=== PATIENT | male | born 1935 | race Caucasian/White ===

== ENCOUNTER 2016-09-21 07:43 | Outpatient (CLI) | payer MEDICARE, OTHER | END 2016-09-21 07:44 | disposition home or self-care (01) | DX: M79.1 Myalgia (principal); R50.9 Fever, unspecified ==

== ENCOUNTER 2016-11-12 07:38 | Outpatient (CLI) | payer MEDICARE, OTHER | END 2016-11-12 07:39 | disposition home or self-care (01) | DX: E78.2 Mixed hyperlipidemia (principal); R73.09 Other abnormal glucose; C61 Malignant neoplasm of prostate; Z79.899 Other long term (current) drug therapy ==

== ENCOUNTER 2016-11-27 15:14 | Outpatient (CLI) | payer MEDICARE, OTHER | END 2016-11-27 15:15 | disposition home or self-care (01) | DX: I65.23 Occlusion and stenosis of bilateral carotid arteries (principal) ==

== ENCOUNTER 2016-12-09 22:33 | Outpatient (CLI) | payer MEDICARE, OTHER | END 2016-12-09 22:34 | disposition critical access hospital (66) | DX: R06.02 Shortness of breath (principal) | CPT/HCPCS: A0425; A0427 ==

== ENCOUNTER 2016-12-09 22:47 | Emergency (ER) | payer MEDICARE, OTHER | END 2016-12-10 01:20 | disposition home or self-care (01) | DX: J40 Bronchitis, not specified as acute or chronic (principal); I10 Essential (primary) hypertension; J44.9 Chronic obstructive pulmonary disease, unspecified; Z85.46 Personal history of malignant neoplasm of prostate; Z85.821 Personal history of Merkel cell carcinoma; Z79.82 Long term (current) use of aspirin; Z87.01 Personal history of pneumonia (recurrent) ==

== ENCOUNTER 2016-12-17 01:50 | Outpatient (CLI) | payer MEDICARE, OTHER | END 2016-12-17 01:51 | disposition critical access hospital (66) | LOC: EMS 01:50 | PROVIDERS: ATTEND Surgery | DX: R06.00 Dyspnea, unspecified (principal); R05 Cough; R07.89 Other chest pain | CPT/HCPCS: A0425; A0427 ==

== ENCOUNTER 2016-12-17 02:06 | Inpatient (IN) | payer MEDICARE, OTHER ==
[2016-12-17] MEDS ORDERED: IPRATROPIUM/ALBUTEROL 3 ML NEB INH ONE (02:19)
[2016-12-17] MEDS ORDERED: IPRATROPIUM/ALBUTEROL 3 ML NEB INH STA (02:22)
[2016-12-17] MEDS ORDERED: ASPIRIN CHEW 81 MG TABLET PO STA (02:24)
[2016-12-17] MEDS ORDERED: ASPIRIN CHEW 81 MG TABLET ONE (02:32)
[2016-12-17] MEDS ORDERED: methylPREDNISolone SUCCINATE 125 MG/2 ML VIAL IVP STA (02:35)
[2016-12-17] MEDS ORDERED: methylPREDNISolone SUCCINATE 125 MG/2 ML VIAL IVP ONE (02:45)
[2016-12-17] MEDS ORDERED: levoFLOXacin 250 MG TABLET PO STA (04:17)
[2016-12-17] MEDS ORDERED: levoFLOXacin 250 MG TABLET PO ONE (04:21)
[2016-12-17] MEDS ORDERED: SODIUM CHLORIDE FLUSH 0.9% 10 ML SYRINGE IVP PRN (04:47)
[2016-12-17] MEDS ORDERED: PROCHLORPERAZINE 10 MG/2 ML VIAL IVP PRN (04:47)
[2016-12-17] MEDS ORDERED: ONDANSETRON 4 MG/2 ML VIAL IVP PRN (04:47)
[2016-12-17] MEDS ORDERED: ZOLPIDEM 5 MG TABLET PO PRN (04:47)
[2016-12-17] MEDS ORDERED: ACETAMINOPHEN 325 MG TABLET PO PRN (04:47)
[2016-12-17] MEDS: SODIUM CHLORIDE 0.9% 1,000 ML IV SCH ×2 (05:56→15:04)
[2016-12-17] MEDS: SODIUM CHLORIDE FLUSH 0.9% 10 ML SYRINGE IVP SCH ×3 (05:56→21:35)
[2016-12-17] MEDS ORDERED: methylPREDNISolone SUCCINATE 40 MG/ML VIAL IVP SCH (06:00)
[2016-12-17] MEDS: PANTOPRAZOLE 40 MG TABLET PO SCH (06:03)
[2016-12-17] MEDS: IPRATROPIUM/ALBUTEROL 3 ML NEB INH SCH ×4 (08:05→19:25)
[2016-12-17] MEDS: POLYETHYLENE GLYCOL 3350 17 GM PACKET PO SCH (08:25)
[2016-12-17] MEDS: ASPIRIN EC 81 MG TABLET PO SCH (08:31)
[2016-12-17] MEDS: SACCHAROMYCES BOULARDII 250 MG CAPSULE PO SCH ×2 (08:33→16:28)
[2016-12-17] MEDS: ENOXAPARIN 40 MG/0.4 ML SYRINGE SUBQ SCH (08:34)
[2016-12-17] MEDS ORDERED: LOSARTAN 50 MG TABLET PO SCH ×2 (09:00→20:51)
[2016-12-17] MEDS ORDERED: hydroCHLOROthiazide 25 MG TABLET PO SCH (09:00)
[2016-12-17] MEDS ORDERED: METOPROLOL SUCCINATE 25 MG TABLET PO SCH (09:00)
[2016-12-17] MEDS ORDERED: ATORVASTATIN 40 MG TABLET PO SCH (21:00)
[2016-12-17] MEDS: METOPROLOL SUCCINATE 25 MG TABLET PO SCH (21:34)
[2016-12-18] MEDS: SODIUM CHLORIDE 0.9% 1,000 ML IV SCH ×2 (00:13→10:43)
[2016-12-18] MEDS: PANTOPRAZOLE 40 MG TABLET PO SCH (06:09)
[2016-12-18] MEDS: SODIUM CHLORIDE FLUSH 0.9% 10 ML SYRINGE IVP SCH (06:34)
[2016-12-18] MEDS: IPRATROPIUM/ALBUTEROL 3 ML NEB INH PRN ×2 (07:30→12:15)
[2016-12-18] MEDS ORDERED: predniSONE 20 MG TABLET PO SCH (08:00)
[2016-12-18] MEDS: SACCHAROMYCES BOULARDII 250 MG CAPSULE PO SCH (08:10)
[2016-12-18] MEDS: METOPROLOL SUCCINATE 25 MG TABLET PO SCH (08:11)
[2016-12-18] MEDS: ENOXAPARIN 40 MG/0.4 ML SYRINGE SUBQ SCH (08:11)
[2016-12-18] MEDS: POLYETHYLENE GLYCOL 3350 17 GM PACKET PO SCH (08:14)
[2016-12-18] MEDS: ASPIRIN EC 81 MG TABLET PO SCH (08:14)
== END 2016-12-18 14:03 | disposition home or self-care (01) | DRG 190 ==
DX: J44.0 Chronic obstructive pulmonary disease with (acute) lower respiratory infection (principal); J18.9 Pneumonia, unspecified organism; J44.1 Chronic obstructive pulmonary disease with (acute) exacerbation; G47.33 Obstructive sleep apnea (adult) (pediatric); G47.30 Sleep apnea, unspecified; Z85.828 Personal history of other malignant neoplasm of skin; I10 Essential (primary) hypertension; R09.02 Hypoxemia; Z85.821 Personal history of Merkel cell carcinoma; Z85.46 Personal history of malignant neoplasm of prostate; Z96.643 Presence of artificial hip joint, bilateral; Z87.891 Personal history of nicotine dependence; Z79.82 Long term (current) use of aspirin

== ENCOUNTER 2017-04-16 09:11 | Outpatient (CLI) | payer MEDICARE, OTHER | END 2017-04-16 09:12 | disposition critical access hospital (66) | LOC: EMS 09:11 | PROVIDERS: ATTEND Surgery | DX: R10.9 Unspecified abdominal pain (principal); R42 Dizziness and giddiness | CPT/HCPCS: A0425; A0429 ==

== ENCOUNTER 2017-04-16 09:25 | Emergency (ER) | payer MEDICARE, OTHER ==
--- NOTE | 2017-04-16 09:43 | ED Physician Documentation ---
PD HPI ABD PAIN - Stated complaint Stated Complaint: ABD PX - Chief complaint Chief Complaint: Abd Pain - History obtained from History obtained from: Patient, Family, EMS - History of Present Illness Timing - onset: Enter time (0800), Today Timing - duration: Hours Timing - details: Abrupt onset, Still present Quality: Sharp, Fullness/distended, Pain Location: All over / everywhere Improved by: Laying still Associated symptoms: Near syncope / syncope, Other (woke up in sweats). No: Fever, Nausea, Vomiting, Hematemesis, Diarrhea, Constipation, Melena, Hematochezia, Dysuria, Hematuria, Chest pain, Dizzy Similar symptoms before: No diagnosis Recently seen: Not recently seen - Additional information Additional information: 81-year-old male awoke this morning with abdominal discomfort and awoke with sweats. He did not feel like he had slept through the night. He got up and went to the bathroom had a bowel movement pain persisted and he eventually called the ambulance. Transported the hospital with improvement in his pain. He still has some continued pain and feels that his abdomen is distended. Review of Systems Constitutional: reports: Chills, Sweats. denies: Fever Eyes: denies: Decreased vision Ears: denies: Ear pain Nose: denies: Rhinorrhea / runny nose, Congestion Throat: denies: Sore throat Cardiac: denies: Chest pain / pressure, Palpitations Respiratory: denies: Dyspnea, Cough GI: reports: Abdominal Pain. denies: Nausea, Vomiting, Constipation, Diarrhea : reports: Frequency. denies: Dysuria, Discharge Skin: denies: Rash Musculoskeletal: denies: Neck pain, Back pain, Extremity pain Neurologic: denies: Generalized weakness, Focal weakness, Numbness PD PAST MEDICAL HISTORY - Past Medical History Cardiovascular: Hypertension Respiratory: COPD, Pneumonia, Sleep apnea, CPAP use Endocrine/Autoimmune: None GI: None : None HEENT: Chronic vision loss, Other Psych: None Musculoskeletal:  Derm: None - Past Surgical History Past Surgical History: Yes General: Colonoscopy Ortho: Hip replacement, Other HEENT: Cataracts, Tonsil/Adenoidectomy Derm: Skin cancer surgery - Present Medications Home Medications: Ambulatory Orders Medication Instructions Recorded Confirmed Hydrochlorothiazide 25 mg PO DAILY 05/12/13 04/16/17 Multivitamin with Iron 1 tab PO DAILYWM 05/12/13 04/16/17 [Multivitamins with Iron] Pravastatin Sodium 20 mg PO DAILY 05/12/13 04/16/17 Psyllium [place]/Calcium Carb 1 each PO DAILY 05/12/13 04/16/17 [Metamucil Plus Calcium Capsule] Tiotropium [place] [Spiriva] 1 puffs INH DAILY 05/12/13 04/16/17 Aspirin [Aspir-Low] 81 mg PO DAILY 11/08/15 04/16/17 Losartan Potassium 50 mg PO DAILY 12/17/16 04/16/17 Metoprolol Tartrate 12.5 mg PO BID 12/17/16 04/16/17 - Allergies Allergies/Adverse Reactions: Allergies Allergy/AdvReac Type Severity Reaction Status Date / Time hydrocodone AdvReac faints Verified 04/16/17 09:31 oxycodone [Oxycodone] AdvReac Unknown Verified 04/16/17 09:31 - Social History Does the pt smoke?: No Smoking Status: Never smoker Does the pt drink ETOH?: No Does the pt have substance abuse?: No - Immunizations Immunizations are current?: Yes - POLST Patient has POLST: No POLST Status: Full Code PD ED PE NORMAL - Vitals Vital signs reviewed: Yes (hypertensive with wide pulse pressure. ) - General General: Alert and oriented X 3, Well developed/nourished, Other (flat affect ) - HEENT HEENT: Atraumatic, PERRL - Neck Neck: Supple, no meningeal sign - Cardiac Cardiac: RRR, No murmur - Respiratory Respiratory: No respiratory distress, Other (wheezes and decreased breath sounds in left base. ) - Abdomen Abdomen: Soft, Other (mild general tenderness no specific tenderness or mass) - Back Back: No CVA TTP, No spinal TTP - Derm Derm: Normal color, No rash - Extremities Extremities: No deformity, No edema - Neuro Neuro: No motor deficit - Psych Psych: Normal mood, Normal affect Results - Vitals Vitals: Vital Signs - 24 hr 04/16/17 04/16/17 04/16/17 09:28 10:31 12:13 Temperature 36.1 C L 36.0 C L 36 C L Heart Rate 62 60 62 Respiratory 18 14 14 Rate Blood Pressure 139/60 H 139/56 H 130/58 L O2 Saturation 99 97 97 04/16/17 04/16/17 12:58 13:59 Temperature 36.5 C 36.9 C Heart Rate 66 68 Respiratory 16 15 Rate Blood Pressure 157/63 H 143/59 H O2 Saturation 100 98 Oxygen O2 Source Room air - Labs Labs: Laboratory Tests 04/16/17 04/16/17 04/16/17 10:10 10:10 10:10 WBC 6.0 RBC 4.30 L Hgb 12.4 L Hct 36.0 L MCV 83.7 MCH 28.9 MCHC 34.5 RDW 13.9 Plt Count 247 MPV 6.9 L Neut # 4.3 Lymph # 1.1 L [place] # 0.5 Eos # 0.0 Baso # 0.0 Absolute Nucleated RBC 0.00 Nucleated RBCs 0.0 Sodium 137 Potassium 3.7 Chloride 103 Carbon Dioxide 26 Anion Gap 8.0 BUN 24 H Creatinine 1.3 H Estimated GFR (MDRD) 53 L Glucose 124 H Calcium 9.0 Total Bilirubin 0.8 AST 25 ALT 20 Alkaline Phosphatase 48 Troponin I < 0.04 Total Protein 6.8 Albumin 3.8 Globulin 3.0 Albumin/Globulin Ratio 1.3 Lipase 28 Urine Color Urine Clarity Urine pH Ur Specific [place] Urine Protein Urine Glucose (UA) Urine Ketones Urine Occult Blood Urine Nitrite Urine Bilirubin Urine Urobilinogen Ur Leukocyte Esterase Ur Microscopic Review Urine Culture Comments 04/16/17 11:10 WBC RBC Hgb Hct MCV MCH MCHC RDW Plt Count MPV Neut # Lymph # [place] # Eos # Baso # Absolute Nucleated RBC Nucleated RBCs Sodium Potassium Chloride Carbon Dioxide Anion Gap BUN Creatinine Estimated GFR (MDRD) Glucose Calcium Total Bilirubin AST ALT Alkaline Phosphatase Troponin I Total Protein Albumin Globulin Albumin/Globulin Ratio Lipase Urine Color YELLOW Urine Clarity CLEAR Urine pH 7.0 Ur Specific [place] 1.015 Urine Protein NEGATIVE Urine Glucose (UA) NEGATIVE Urine Ketones NEGATIVE Urine Occult Blood NEGATIVE Urine Nitrite NEGATIVE Urine Bilirubin NEGATIVE Urine Urobilinogen 0.2 (NORMAL) Ur Leukocyte Esterase NEGATIVE Ur Microscopic Review NOT INDICATED Urine Culture Comments NOT INDICATED - Rads (name of study) 2 view chest Radiology: Prelim report reviewed (Impression: 1. 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 He has had one time previously where he thought he had an obstruction was admitted in the hospital overnight and this resolved. Today he has a marked distention of the colon on his chest x-ray and during his stay in the emergency department he continues to improve and his pain and discomfort. He is able to get up and walk and ambulate in the department without pain. I discussed with the patient further testing to include CT scanning of the abdomen to look for bowel obstruction and he is willing to go back home to await any worsening and return should he have worsening. The expectation at the time of discharge is for his symptoms to resolve. Departure - Departure Disposition: 01 Home, Self Care Clinical Impression: Abdominal pain Qualifiers: Abdominal location: generalized Qualified Code(s): R10.84 - Generalized abdominal pain Instructions: ED Abdominal Pain Unkn Cause Follow-Up: Willard Boland MD [Primary Care Provider] - Comments: Today on your chest x-ray looks like there was significant distention of the colon. This appears to be resolving and our expectation is that your pain resolves and does not return or worsen. Should you have persistence or worsening of symptoms return to the ED for further evaluation.
[2017-04-16 10:17] LABS: BASOPHILS % (AUTO) 0.6 %; EOSINOPHILS % (AUTO) 0.6 %; HGB - HEMOGLOBIN 12.4 g/dL (14.0-18.0); LYMPHOCYTES # (AUTO) 1.1 10^3/uL (1.5-3.5); LYMPHOCYTES % (AUTO) 17.9 %; MEAN CORPUSCULAR HEMOGLOBIN 28.9 pg (27.0-31.0); MEAN CORPUSCULAR HGB CONC 34.5 g/dL (32.0-36.0); MEAN CORPUSCULAR VOLUME 83.7 fL (80.0-94.0); MEAN PLATELET VOLUME 6.9 fL (7.4-11.4); MONOCYTES # (AUTO) 0.5 10^3/uL (0.0-1.0); MONOCYTES % (AUTO) 8.2 %; NEUTROPHILS # (AUTO) 4.3 10^3/uL (1.5-6.6); NEUTROPHILS % (AUTO) 72.7 %; RED CELL DISTRIBUTION WIDTH 13.9 % (12.0-15.0)
--- NOTE | 2017-04-16 10:18 | XRAY Preliminary Report ---
Exam: XR Chest 2 View PA/LAT IMPRESSION: 1. 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
--- NOTE | 2017-04-16 10:20 | XRAY Report ---
EXAM: CHEST RADIOGRAPHY EXAM DATE: 04/16/2017 09:57 AM. CLINICAL HISTORY: SOA abdominal pain . COMPARISON: 12/17/2016. TECHNIQUE: 2 views. FINDINGS: Lungs/Pleura: No pleural effusion. No pneumothorax. Normal volumes. Chronic elevated left hemidiaph ragm with decreased left lung volume. Chronic left basilar atelectasis Mediastinum: Shift of heart and mediastinum towards the right from elevated left hemidiaphragm stable . Heart size normal Other: None. IMPRESSION: 1. 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
[2017-04-16 10:30] LABS: ALBUMIN/GLOBULIN RATIO 1.3 (1.0-2.2); BILIRUBIN,TOTAL 0.8 mg/dL (0.2-1.0); CREATININE 1.3 mg/dL (0.6-1.2); POTASSIUM 3.7 mmol/L (3.5-5.0); TOTAL PROTEIN 6.8 g/dL (6.7-8.2)
[2017-04-16 11:24] LABS: BILIRUBIN,URINE NEGATIVE (NEGATIVE)
[2017-04-16 11:26] LABS: UA CHARGE (STRIP ONLY) YES; UR CULTURE IF IND NOT INDICATED
[2017-04-16] MEDS ORDERED: SODIUM CHLORIDE 0.9% 1,000 ML IV ONE (12:57)
[2017-04-16 13:59] VITALS: BP 143/59
== END 2017-04-16 15:05 | disposition home or self-care (01) ==
LOC: EDUNIT# → ED 09:25
DX: R10.84 Generalized abdominal pain (principal); I10 Essential (primary) hypertension; Z96.649 Presence of unspecified artificial hip joint; Z79.82 Long term (current) use of aspirin
CPT/HCPCS: 36415; 71020; 80053; 81001; 81003; 83690; 84484; 85025; 87086; 99283

== ENCOUNTER 2017-12-12 10:15 | Outpatient (CLI) | payer MEDICARE, OTHER ==
[2017-12-12 10:29] LABS: BASOPHILS # (AUTO) 0.1 10^3/uL (0.0-0.1); BASOPHILS % (AUTO) 0.8 %; EOSINOPHILS # (AUTO) 0.1 10^3/uL (0.0-0.7); EOSINOPHILS % (AUTO) 1.5 %; HGB - HEMOGLOBIN 13.4 g/dL (14.0-18.0); LYMPHOCYTES # (AUTO) 2.2 10^3/uL (1.5-3.5); LYMPHOCYTES % (AUTO) 32.2 %; MEAN CORPUSCULAR HEMOGLOBIN 29.3 pg (27.0-31.0); MEAN CORPUSCULAR HGB CONC 34.1 g/dL (32.0-36.0); MEAN CORPUSCULAR VOLUME 86.1 fL (80.0-94.0); MONOCYTES # (AUTO) 0.6 10^3/uL (0.0-1.0); MONOCYTES % (AUTO) 9.7 %; NEUTROPHILS # (AUTO) 3.7 10^3/uL (1.5-6.6); NEUTROPHILS % (AUTO) 55.8 %; PLT - PLATELET COUNT 236 10^3/uL (130-450); RED BLOOD COUNT 4.58 10^6/uL (4.70-6.10); RED CELL DISTRIBUTION WIDTH 13.7 % (12.0-15.0); WHITE BLOOD COUNT 6.7 x10^3/uL (4.8-10.8)
[2017-12-12 10:52] LABS: ALBUMIN 4.3 g/dL (3.2-5.5); ALBUMIN/GLOBULIN RATIO 1.4 (1.0-2.2); ALKALINE PHOSPHATASE 48 IU/L (42-121); ALT ALANINE AMINOTRANSFERASE 20 IU/L (10-60); AST ASPARTATE AMINOTRANSFERASE 24 IU/L (10-42); BILIRUBIN,TOTAL 0.5 mg/dL (0.2-1.0); BUN - BLOOD UREA NITROGEN 20 mg/dL (6-20); CALCIUM 9.1 mg/dL (8.5-10.3); CARBON DIOXIDE - CO2 27 mmol/L (21-32); CHLORIDE 106 mmol/L (101-111); CHOL/HDL RATIO 2.8 (<5.0); CHOLESTEROL 168 mg/dL; CREATININE 1.1 mg/dL (0.6-1.2); GFR - MDRD 64 (>89); GLUCOSE 96 mg/dL (70-100); HDL CHOLESTEROL 60 mg/dL; LDL CHOLESTEROL,CALCULATED 91 mg/dL; LDL/HDL RATIO 1.5 (<3.6); SODIUM 140 mmol/L (135-145); TOTAL PROTEIN 7.4 g/dL (6.7-8.2); VLDL CHOLESTEROL 17 mg/dL
== END 2017-12-12 10:16 | disposition home or self-care (01) ==
LOC: LAB 10:15
PROVIDERS: ATTEND Internal Medicine
DX: I65.29 Occlusion and stenosis of unspecified carotid artery (principal); I12.9 Hypertensive chronic kidney disease with stage 1 through stage 4 chronic kidney disease, or unspecified chronic kidney disease; N18.9 Chronic kidney disease, unspecified
CPT/HCPCS: 36415; 80053; 80061; 83721; 85025

== ENCOUNTER 2018-02-24 09:54 | Outpatient (CLI) | payer MEDICARE, OTHER | END 2018-02-24 09:55 | disposition home or self-care (01) | LOC: SC 09:54 | PROVIDERS: ATTEND Internal Medicine Pulmonary Disease | DX: G47.33 Obstructive sleep apnea (adult) (pediatric) (principal) | CPT/HCPCS: 99203; G0463; 99212 ==

== ENCOUNTER 2018-06-02 13:57 | Outpatient (CLI) | payer MEDICARE, OTHER | END 2018-06-02 13:58 | disposition home or self-care (01) | LOC: SC 13:57 | PROVIDERS: ATTEND Nurse Practitioner Family | DX: G47.33 Obstructive sleep apnea (adult) (pediatric) (principal) | CPT/HCPCS: 99214; G0463; 99212 ==

== ENCOUNTER 2019-05-08 08:09 | Outpatient (CLI) | payer MEDICARE, OTHER ==
[2019-05-08 08:52] LABS: BASOPHILS % (AUTO) 0.7 %; EOSINOPHILS # (AUTO) 0.2 10^3/uL (0.0-0.7); EOSINOPHILS % (AUTO) 2.7 %; HGB - HEMOGLOBIN 12.3 g/dL (14.0-18.0); LYMPHOCYTES # (AUTO) 1.6 10^3/uL (1.5-3.5); LYMPHOCYTES % (AUTO) 28.1 %; MEAN CORPUSCULAR HEMOGLOBIN 30.1 pg (27.0-31.0); MEAN CORPUSCULAR HGB CONC 34.2 g/dL (32.0-36.0); MEAN PLATELET VOLUME 9.4 fL (7.4-11.4); MONOCYTES # (AUTO) 0.6 10^3/uL (0.0-1.0); NEUTROPHILS # (AUTO) 3.2 10^3/uL (1.5-6.6); NEUTROPHILS % (AUTO) 56.4 %; PLT - PLATELET COUNT 233 10^3/uL (130-450); RED BLOOD COUNT 4.09 10^6/uL (4.70-6.10); RED CELL DISTRIBUTION WIDTH 13.1 % (12.0-15.0); WHITE BLOOD COUNT 5.6 x10^3/uL (4.8-10.8)
[2019-05-08 08:58] LABS: HB2 TOTAL 12.2 g/dL; HEMOGLOBIN A1C 0.43 g/dL; HEMOGLOBIN A1C % 5.4 % (4.6-6.2)
[2019-05-08 09:03] LABS: ALBUMIN 3.7 g/dL (3.2-5.5); ALBUMIN/GLOBULIN RATIO 1.2 (1.0-2.2); ALKALINE PHOSPHATASE 52 IU/L (42-121); ALT ALANINE AMINOTRANSFERASE 16 IU/L (10-60); AST ASPARTATE AMINOTRANSFERASE 21 IU/L (10-42); BILIRUBIN,TOTAL 0.6 mg/dL (0.2-1.0); BUN - BLOOD UREA NITROGEN 34 mg/dL (6-20); CALCIUM 8.9 mg/dL (8.5-10.3); CARBON DIOXIDE - CO2 27 mmol/L (21-32); CHLORIDE 106 mmol/L (101-111); CHOL/HDL RATIO 2.7 (<5.0); CHOLESTEROL 146 mg/dL; CREATININE 1.3 mg/dL (0.6-1.2); GFR - MDRD 53 (>89); GLUCOSE 99 mg/dL (70-100); HDL CHOLESTEROL 55 mg/dL; LDL CHOLESTEROL,CALCULATED 82 mg/dL; LDL/HDL RATIO 1.5 (<3.6); SODIUM 141 mmol/L (135-145); TOTAL PROTEIN 6.9 g/dL (6.7-8.2); VLDL CHOLESTEROL 9 mg/dL
== END 2019-05-08 08:10 | disposition home or self-care (01) ==
LOC: LAB 08:09
PROVIDERS: ATTEND Family Medicine
DX: E78.5 Hyperlipidemia, unspecified (principal); E66.3 Overweight; I65.29 Occlusion and stenosis of unspecified carotid artery; I10 Essential (primary) hypertension; G47.33 Obstructive sleep apnea (adult) (pediatric); J44.9 Chronic obstructive pulmonary disease, unspecified; Z79.899 Other long term (current) drug therapy
CPT/HCPCS: 36415; 80053; 80061; 83036; 83721; 84443; 85025

== ENCOUNTER 2019-06-03 12:50 | Outpatient (CLI) | payer MEDICARE, OTHER ==
[2019-06-03 13:36] VITALS: BP 150/70
--- NOTE | 2019-06-03 13:36 | SLEEP CARE CONSULTATION ---
Information from patient questionnaire entered by Lory Mendiola. I have reviewed and concur with the information entered by Lory Mendiola. This document represents the service I personally performed and the decisions made by me, Heavenly Palmer, RN, MSN, [employer] RE[employer]DER. History of Present Illness Previous diagnosis: Extremely Severe, Obstructive Sleep Apnea-Hypopnea Syndrome AHI: 103.4 Reason for CPAP/BiPAP follow up: annual Equipment type: CPAP Equipment obtained from: [facility] [place] (having difficulty getting supplies despite repeated attempts or out of supplies that are needed such as mask) Mask style: Nasal pillows Mask brand: Resmed Backup mask available: Yes (full face mask ) Last cushion change: 6 weeks CPAP Compliance Data - Data Reviewed with Patient Average duration of nightly device use: 6.95 Compliance rate %: 85 (180 days) Current pressure setting (cmH2O): 10-12 Humidity settin Heated hose settin Average residual AHI: 0.1 Average large leak: zero Subjective Missed days of use due to: reports: travel (using his travel CPAP) Patient concerns: reports: dry mouth, nose, throat (occasional - once a month). denies: aerophagia, mask discomfort, air blowing in eyes, mask leak noise, condensation in mask/hose, nasal congestion, epistaxis Observed to snore while using device: No Current pressure setting perceived as: comfortable On therapy, patient: reports: sleeping better, awakening more refreshed, being more awake and alert during the day, more rested overall. denies: drowsiness while driving Initial [place] Sleepiness Scale score: 6 Current [place] Sleepiness Scale score: 0 Allergies and Home Medications Known drug allergies: Yes (hydrocodone, oxycodone ) Home medication list reviewed: Yes (no changes ) Allergy and home medication list: Hydrochlorothiazide 25mg tab one daily Metoprolol Tartrate 25mg tab twice daily Spiriva [place] 18 mcg inhalation cap One daily Pravachol (Pravastatin) 20mg tab one daily at bedtime Losartan Potassium 50mg tab one daily Aspirin DR 81mg tab one daily Multi-Vitamin with iron Tab one daily Metamucil Fiber 51.7% oral packet PRN Ventolin HFA 108 (90 base) mcg/act One-two puffs every 4-6 hours PRN SOB Review of Systems Review of systems same as previous: Yes Physical Exam Blood Pressure: 150/70 Cuff size: long Heart Rate: 74 O2 Saturation: 94 Height: 5 ft 10.75 in Weight: 219 lb 3.2 oz Body Mass Index: 30.7 BMI Classification: Obesity Class 1 Impression and Plan 1. Obstructive Sleep Apnea-Hypopnea Syndrome, extremely severe, with good treatment compliance and good apnea control. On CPAP therapy, the patient has better sleep quality and is more rested overall. For oral dryness, I showed him how to adjust humidity on sample device and discussed rationale for changing settings of humidity and heated hose. For his supply concerns, I discussed how he could transfer to new DME. He will consider. I will have him discuss his options with my rehabilitation program coordinator and make a DWO prescription if needed. A supply replacement schedule given. I answered his questions regarding his CPAP treatment. Patient's apnea severity and rationale for treatment to reduce apnea, improve sleep quality and reduce cardiovascular and cerebrovascular events was reviewed. I also reviewed the benefit of consistent device use of CPAP for hypertension, COPD. * Continue CPAP pressure at 10-12 cmH2O * Adjust humidity * consider transfer. * Notify me if snoring with mask or feeling that the pressure is too much or too little * Attempt to lose weight * Return for follow up in 1 year , or sooner if concerns arise I spent 100% of this 30 minute visit face to face with the patient with greater than 50% of this was spent time counseling the patient and coordination of care.
== END 2019-06-03 12:51 | disposition home or self-care (01) ==
LOC: SC 12:50
PROVIDERS: ATTEND Nurse Practitioner Family
DX: G47.33 Obstructive sleep apnea (adult) (pediatric) (principal); E66.9 Obesity, unspecified; Z68.30 Body mass index [BMI] 30.0-30.9, adult
CPT/HCPCS: 99214; G0463; 99212

== ENCOUNTER 2020-05-19 12:51 | Outpatient (CLI) | payer MEDICARE, OTHER ==
[2020-05-19 13:52] VITALS: BP 120/60
--- NOTE | 2020-05-19 13:53 | SLEEP CARE CONSULTATION ---
Information from patient questionnaire entered by Lory Mendiola. I have reviewed and concur with the information entered by Lory Mendiola. This document represents the service I personally performed and the decisions made by me, Heavenly Palmer, RN, MSN, HEALTH SPECIALIST. History of Present Illness Service Date and Time: 05/19/2020 1251 Previous diagnosis: Extremely Severe, Obstructive Sleep Apnea-Hypopnea Syndrome AHI: 103.4 (in 2004) Reason for follow up: annual (last seen 2019) Equipment type: CPAP Equipment obtained from: [facility] (no longer dispensing CPAP supplies) Mask style: Nasal pillows Backup mask available: Yes (old mask ) Last cushion change: 1 month Prior sleep studies: Yes Year and Where: 2004 - [facility] Type of Sleep Study: Polysomnography CPAP Compliance Data - Data Reviewed with Patient Average duration of nightly device use: 7.1 Compliance rate %: 94.4 (180 days) Current pressure setting (cmH2O): 10-12 Humidity settin Heated hose settin Average residual AHI: 0.1 Average large leak: 12 sec Subjective Missed days of use due to: reports: travel (with travel CPAP ) Patient concerns: reports: other (falling asleep while watching TV in bed occasionally ). denies: aerophagia, mask discomfort, air blowing in eyes, mask leak noise, condensation in mask/hose, dry mouth, nose, throat, epistaxis Observed to snore while using device: No Current pressure setting perceived as: comfortable On therapy, patient: reports: sleeping better, awakening more refreshed, being more awake and alert during the day, more rested overall. denies: drowsiness while driving Initial [place] Sleepiness Scale score: 6 (in 2018) Current [place] Sleepiness Scale score: 0 Allergies and Home Medications Known drug allergies: Yes Home medication list reviewed: Yes (no changes ) Review of Systems Review of systems same as previous: Yes Physical Exam Blood Pressure: 120/60 Cuff size: long Heart Rate: 63 O2 Saturation: 99 Height: 5 ft 10.75 in Weight: 210 lb 9.6 oz (no change) Body Mass Index: 29.5 BMI Classification: Overweight Impression and Plan 1. Obstructive Sleep Apnea-Hypopnea Syndrome, extremely severe, with good treatment compliance and good apnea control. On CPAP therapy, the patient has better sleep quality and is more rested overall. To prevent falling asleep without CPAP he is to put on his CPAP before getting into bed. His mask style allows visualization of TV while in bed. The importance of using CPAP with all sleep was emphasized with rationale due to his apnea severity. He had questions about different styles of masks and showed him other styles on bill shelf and rationale for using. For patient supply concerns. Patient was notified that another DME can be used. I will have my surgical services coordinator inform of DME options. A DWO prescription will then be made. Patient advised to contact this office if further supply problems. He is overweight but stable for past several years and is active and comfortable at this weight. I discussed risks of obesity, his BMI and advised him not to gain weight. If he does lose weight, I explained how significant weight loss can reduce his apnea and CPAP pressure requirements. Symptoms to report for future CPAP pressure adjustments discussed. Patient's apnea severity and rationale for treatment to reduce apnea, improve sleep quality and reduce cardiovascular and cerebrovascular events was reviewed. I also reviewed the benefit of consistent device use of CPAP for hypertension . * Transfer to new DME. * Continue auto CPAP pressure at 10-12 cmH2O * Use CPAP with all sleep. * Notify me if snoring with mask or feeling that the pressure is too much or too little * Attempt to lose weight * Call this office if any problems using CPAP * Return for follow up in 1 year , or sooner if concerns arise Visit Type: In Office Time Spent with Patient (minutes): 29 Provider Statement: I spent 100% of the Face to Face Visit with the patient with greater than 50% spent counseling the patient and coordination of care.
== END 2020-05-19 12:52 | disposition home or self-care (01) ==
LOC: SC 12:51
PROVIDERS: ATTEND Nurse Practitioner Family
DX: G47.33 Obstructive sleep apnea (adult) (pediatric) (principal); E66.3 Overweight; Z68.29 Body mass index [BMI] 29.0-29.9, adult
CPT/HCPCS: 99214; G0463; 99212

== ENCOUNTER 2021-06-06 15:31 | Outpatient (CLI) | payer MEDICARE, OTHER ==
[2021-06-06 16:24] VITALS: BP 138/83
--- NOTE | 2021-06-06 16:24 | SLEEP CARE CONSULTATION ---
Information from patient questionnaire entered by Lanre Phoenix. I have reviewed and concur with the information entered by Lanre Phoenix. This document represents the service I personally performed and the decisions made by me, Casi Menard ARNP. History of Present Illness Service Date and Time: 06/06/2021 1531 Previous diagnosis: Extremely Severe, Obstructive Sleep Apnea-Hypopnea Syndrome AHI: 103.4 (in 2004) Reason for follow up: annual (Last seen 05/2020) Equipment type: CPAP Equipment obtained from: [employer] (old mask) Mask style: Nasal pillows Backup mask available: Yes (old mask) Last cushion change: 1 month Prior sleep studies: Yes Year and Where: 2004 - [facility] Type of Sleep Study: Polysomnography HPI additional information: LIA ANN was diagnosed to have extremely severe, AHI 103.4, obstructive sleep apnea-hypopnea syndrome and returned today for CPAP therapy annual follow- up. CPAP Compliance Data - Data Reviewed with Patient Average duration of nightly device use: 8 h 1 min Compliance rate %: 97.8 Current pressure setting (cmH2O): 10-12 Humidity settin Heated hose settin Average residual AHI: 0.2 Average large leak: 0 sec Subjective Missed days of use due to: reports: travel (to [place], used travel cpap) Patient concerns: reports: mask leak noise (heard by his , does not wake him up). denies: aerophagia, mask discomfort, air blowing in eyes, condensation in mask/hose, nasal congestion, dry mouth, nose, throat, epistaxis, other Observed to snore while using device: No Current pressure setting perceived as: comfortable On therapy, patient: reports: sleeping better, awakening more refreshed, being more awake and alert during the day, more rested overall. denies: drowsiness while driving Initial [place] Sleepiness Scale score: 6 (in 2018) Current [place] Sleepiness Scale score: 1 Allergies and Home Medications Home medication list reviewed: Yes (no changes) Review of Systems Review of systems same as previous: Yes (no changes, has had vaccines for Covid and pneumonia, going for booster ) Physical Exam Blood Pressure: 138/83 (COPD) Cuff size: wrist Heart Rate: 77 O2 Saturation: 97 Height: 5 ft 10.75 in Weight: 210 lb Weight change since last visit: (no change) Body Mass Index: 29.5 BMI Classification: Overweight Impression and Plan 1. Obstructive Sleep Apnea-Hypopnea Syndrome, extremely severe, with good treatment compliance and excellent apnea control. On CPAP therapy, the patient has better sleep quality and is more rested overall. I informed the patient that [employer] has a recall on several devices like the patients machine. Patient was encouraged to register their device online with [employer] for the recall to see if their device is affected. If their device is affected they should start a claim. Patient denies any black particles seen in machine or hoses, any unusual odors coming from device. Patient has not experienced any physical symptoms such as upper airway irritation, headache, skin or eye irritation, asthma, nausea/vomiting, difficulty breathing or chest pain. If patient is not able to sleep due to waking up choking, gasping for air or other respiratory distress that they may decide to continue using it until it is either replaced or repaired. Patient's weight has not changed since his last visit. Patient was encouraged to lose weight for their overall health and to reduce apneas. Patient voiced understanding and agreement with plan. Patient's apnea severity and rationale for treatment to reduce apnea, improve sleep quality and reduce cardiovascular and cerebrovascular events was reviewed. I a lso reviewed the benefit of consistent device use of CPAP for hypertension. * Continue auto CPAP pressure at 10-12 cmH2O * Patient will call and register his device for recall * Notify me if snoring with mask or feeling that the pressure is too much or too little * Attempt to lose weight * Call this office if any problems using CPAP * Return for follow up in 1 year, or sooner if concerns arise Counseling Topics: Spare mask, Weight control Visit Type: In Office Time Spent with Patient (minutes): 22 Provider Statement: I spent 100% of the Face to Face Visit with the patient with greater than 50% spent counseling the patient and coordination of care.
== END 2021-06-06 15:32 | disposition home or self-care (01) ==
LOC: SC 15:31
PROVIDERS: ATTEND Nurse Practitioner Family
DX: G47.33 Obstructive sleep apnea (adult) (pediatric) (principal)
CPT/HCPCS: 99213; G0463; 99212

== ENCOUNTER 2021-07-15 00:08 | Outpatient (CLI) | payer MEDICARE, OTHER | END 2021-07-15 00:09 | disposition critical access hospital (66) | LOC: EMS 00:08 | DX: R06.02 Shortness of breath (principal); R07.89 Other chest pain | CPT/HCPCS: A0425; A0427 ==

== ENCOUNTER 2021-07-15 00:21 | Observation (INO) | payer MEDICARE, OTHER ==
[2021-07-15] MEDS ORDERED: IPRATROPIUM/ALBUTEROL 3 ML NEB INH STA ×2 (00:27→01:27)
[2021-07-15] MEDS ORDERED: methylPREDNISolone SUCCINATE 125 MG/2 ML VIAL IVP STA (00:27)
--- NOTE | 2021-07-15 00:30 | ED Physician Documentation ---
History of Present Illness - Stated complaint Stated Complaint: SOA - History obtained from History obtained from: Patient, EMS - Additonal information Additional information: 86-year-old man with a history of COPD presents after waking from sleep with shortness of breath at 2300. patient self administered albuterol pump X 2. on ems arrival patient was tachypneic, wheezing, with o2 sat 86% RA. he received a duoneb en route with improvement. denies fever/chills, cough, cp. vaccinated against covid-19. patient is coming from his home where he lives independently. Review of Systems Ten Systems: 10 systems reviewed and negative Constitutional: denies: Fever, Chills Cardiac: denies: Chest pain / pressure Respiratory: reports: Dyspnea. denies: Cough PD PAST MEDICAL HISTORY - Present Medications Home Medications: Ambulatory Orders Medication Instructions Recorded Confirmed Hydrochlorothiazide 25 mg PO DAILY 05/12/13 04/16/17 Multivitamin with Iron 1 tab PO DAILYWM 05/12/13 04/16/17 [Multivitamins with Iron] Pravastatin Sodium 20 mg PO DAILY 05/12/13 04/16/17 Psyllium Husk/Calcium Carb 1 each PO DAILY 05/12/13 04/16/17 [Metamucil Plus Calcium Capsule] Tiotropium [place] [Spiriva] 1 puffs INH DAILY 05/12/13 04/16/17 Aspirin [Aspir-Low] 81 mg PO DAILY 11/08/15 04/16/17 Losartan Potassium 50 mg PO DAILY 12/17/16 04/16/17 Metoprolol Tartrate 12.5 mg PO BID 12/17/16 04/16/17 - Allergies Allergies/Adverse Reactions: Allergies Allergy/AdvReac Type Severity Reaction Status Date / Time hydrocodone AdvReac faints Verified 07/15/21 00:31 oxycodone [Oxycodone] AdvReac Unknown Verified 07/15/21 00:31 PD ED PE NORMAL - Vitals Vital signs reviewed: Yes - General General: Alert and oriented X 3, Other (moderate respiratory distress) - HEENT HEENT: Atraumatic, PERRL, EOMI - Neck Neck: Supple, no meningeal sign - Cardiac Cardiac: RRR - Respiratory Respiratory: Other (BL inspiratory and expiratory wheezing) - Abdomen Abdomen: Non tender, Non distended - Derm Derm: Normal color, Warm and dry - Extremities Extremities: No deformity - Neuro Neuro: Alert and oriented X 3 - Psych Psych: Normal mood, Normal affect Results - Vitals Vitals: Vital Signs - 24 hr 07/15/21 07/15/21 07/15/21 00:31 00:50 01:03 Temperature 36.4 C L Heart Rate 89 83 Respiratory 33 H 24 23 Rate Blood Pressure 170/73 H 138/64 H O2 Saturation 97 94 07/15/21 07/15/21 07/15/21 01:38 01:40 01:53 Temperature Heart Rate 98 103 H 99 Respiratory 21 20 27 H Rate Blood Pressure 134/64 H O2 Saturation 95 96 07/15/21 07/15/21 04:20 06:17 Temperature 36.1 C L Heart Rate 95 98 Respiratory 24 25 H Rate Blood Pressure 147/60 H 163/65 H O2 Saturation 95 96 Oxygen O2 Source Room air Oxygen Flow Rate 4 - Labs Labs: Laboratory Tests 07/15/21 07/15/21 07/15/21 00:48 00:48 00:48 WBC 6.7 RBC 4.05 L Hgb 11.7 L Hct 36.0 L MCV 88.9 MCH 28.9 MCHC 32.5 RDW 12.7 Plt Count 222 MPV 9.1 Neut # (Auto) 3.9 Lymph # (Auto) 1.8 Gooding # (Auto) 0.8 Eos # (Auto) 0.2 Baso # (Auto) 0.1 Absolute Nucleated RBC 0.00 Nucleated RBC % 0.0 VBG pH 7.314 VBG pCO2 60.1 H VBG pO2 25.9 VBG HCO3 29.9 H VBG Total CO2 31.7 H VBG O2 Saturation 47.6 L VBG Base Excess 2.3 H Sodium 137 Potassium 3.9 Chloride 100 L Carbon Dioxide 27 Anion Gap 10.0 BUN 34 H Creatinine 1.6 H Estimated GFR (MDRD) 41 L Glucose 141 H Calcium 9.0 Total Bilirubin 0.4 AST 23 ALT 18 Alkaline Phosphatase 57 B-Natriuretic Peptide Total Protein 7.3 Albumin 4.0 Globulin 3.3 Albumin/Globulin Ratio 1.2 Lipase 34 Nasal Adenovirus (PCR) Nasal B. parapertussis DNA (PCR) Nasal Coronavir 229E PCR Nasal Coronavir HKU1 PCR Nasal Coronavir NL63 PCR Nasal Coronavir OC43 PCR Nasal Enterovir/Rhinovir PCR Nasal Influenza B PCR Nasal Influenza A PCR Nasal Parainfluen 1 PCR Nasal Parainfluen 2 PCR Nasal Parainfluen 3 PCR Nasal Parainfluen 4 PCR Nasal RSV (PCR) Nasal B.pertussis DNA PCR Nasal C.pneumoniae (PCR) Bryce Human Metapneumo PCR Nasal M.pneumoniae (PCR) Nasal SARS-CoV-2 (PCR) 07/15/21 07/15/21 00:48 00:52 WBC RBC Hgb Hct MCV MCH MCHC RDW Plt Count MPV Neut # (Auto) Lymph # (Auto) Gooding # (Auto) Eos # (Auto) Baso # (Auto) Absolute Nucleated RBC Nucleated RBC % VBG pH VBG pCO2 VBG pO2 VBG HCO3 VBG Total CO2 VBG O2 Saturation VBG Base Excess Sodium Potassium Chloride Carbon Dioxide Anion Gap BUN Creatinine Estimated GFR (MDRD) Glucose Calcium Total Bilirubin AST ALT Alkaline Phosphatase B-Natriuretic Peptide 148 H Total Protein Albumin Globulin Albumin/Globulin Ratio Lipase Nasal Adenovirus (PCR) NOT DETECTED Nasal B. parapertussis DNA (PCR) NOT DETECTED Nasal Coronavir 229E PCR NOT DETECTED Nasal Coronavir HKU1 PCR NOT DETECTED Nasal Coronavir NL63 PCR NOT DETECTED Nasal Coronavir OC43 PCR NOT DETECTED Nasal Enterovir/Rhinovir PCR NOT DETECTED Nasal Influenza B PCR NOT DETECTED Nasal Influenza A PCR NOT DETECTED Nasal Parainfluen 1 PCR NOT DETECTED Nasal Parainfluen 2 PCR NOT DETECTED Nasal Parainfluen 3 PCR NOT DETECTED Nasal Parainfluen 4 PCR NOT DETECTED Nasal RSV (PCR) NOT DETECTED Nasal B.pertussis DNA PCR NOT DETECTED Nasal C.pneumoniae (PCR) NOT DETECTED Bryce Human Metapneumo PCR NOT DETECTED Nasal M.pneumoniae (PCR) NOT DETECTED Nasal SARS-CoV-2 (PCR) NOT DETECTED PD MEDICAL DECISION MAKING - ED course ED course: 86yM p/w SOA, wheezing c/w COPD exacerbation. will provide symptomatic care and reevaluate. Patient with persistent tachypnea s/p neb X 3, steroids. labwork/presentation c/w COPD exacerbation. patient with R lung basilar attenuation concerning for underlying pneumonia, however patient denies fevers or feeling ill prior to acute exacerbation. will obtain blood cx, admit for monitoring of his copd and monitoring for signs of infection. Departure - Departure Disposition: ED Place in Observation Clinical Impression: COPD exacerbation Condition: Stable Instructions: COPD Dc Comments: You were seen in the emergency department for COPD exacerbation
[2021-07-15 00:55] LABS: VBG BASE EXCESS 2.3 mmol/L (-2 - +2); VBG HCO3 29.9 mmol/L (23-28); VBG OXYGEN SATURATION 47.6 % (60-80); VBG PCO2 60.1 mmHg (41-51); VBG PH 7.314 (7.31-7.41); VBG PO2 25.9 mmHg (25-47); VBG TOTAL CO2 31.7 mmol/L (24-29)
[2021-07-15 00:58] LABS: BASOPHILS # (AUTO) 0.1 10^3/uL (0.0-0.1); BASOPHILS % (AUTO) 0.9 %; EOSINOPHILS # (AUTO) 0.2 10^3/uL (0.0-0.7); EOSINOPHILS % (AUTO) 2.5 %; HGB - HEMOGLOBIN 11.7 g/dL (14.0-18.0); LYMPHOCYTES # (AUTO) 1.8 10^3/uL (1.5-3.5); LYMPHOCYTES % (AUTO) 26.4 %; MEAN CORPUSCULAR HEMOGLOBIN 28.9 pg (27.0-31.0); MEAN CORPUSCULAR HGB CONC 32.5 g/dL (32.0-36.0); MEAN CORPUSCULAR VOLUME 88.9 fL (80.0-94.0); MEAN PLATELET VOLUME 9.1 fL (7.4-11.4); MONOCYTES # (AUTO) 0.8 10^3/uL (0.0-1.0); MONOCYTES % (AUTO) 11.9 %; NEUTROPHILS # (AUTO) 3.9 10^3/uL (1.5-6.6); NEUTROPHILS % (AUTO) 57.7 %; PLT - PLATELET COUNT 222 10^3/uL (130-450); RED BLOOD COUNT 4.05 10^6/uL (4.70-6.10); RED CELL DISTRIBUTION WIDTH 12.7 % (12.0-15.0); WHITE BLOOD COUNT 6.7 x10^3/uL (4.8-10.8)
[2021-07-15 01:06] LABS: ALBUMIN/GLOBULIN RATIO 1.2 (1.0-2.2); BILIRUBIN,TOTAL 0.4 mg/dL (0.2-1.0); CREATININE 1.6 mg/dL (0.6-1.2); POTASSIUM 3.9 mmol/L (3.5-5.0); TOTAL PROTEIN 7.3 g/dL (6.7-8.2)
[2021-07-15] MEDS ORDERED: ALBUTEROL NEB 2.5 MG/3 ML INH STA (01:32)
[2021-07-15 01:53] LABS: B. PARAPERTUSSIS- RESP PCR PAN NOT DETECTED; B. PERTUSSIS- RESP PCR PANEL NOT DETECTED; C. PNEUMONIAE- RESP PCR PANEL NOT DETECTED; CORONAVIRUS 229E-RESP PCR NOT DETECTED; CORONAVIRUS HKU1-RESP PCR NOT DETECTED; CORONAVIRUS NL63-RESP PCR NOT DETECTED; CORONAVIRUS OC43-RESP PCR NOT DETECTED; HUMAN METAPNEUMOVIRUS NOT DETECTED; INFLUENZA A- RESP PCR PANEL NOT DETECTED; INFLUENZA B - RESP PCR PANEL NOT DETECTED; M. PNEUMONIAE- RESP PCR PANEL NOT DETECTED; PARAINFLUENZA VIRUS 1 NOT DETECTED; PARAINFLUENZA VIRUS 2 NOT DETECTED; PARAINFLUENZA VIRUS 3 NOT DETECTED; PARAINFLUENZA VIRUS 4 NOT DETECTED; RHINOVIRUS/ENTEROVIRUS NOT DETECTED; RSV- RESP PCR PANEL NOT DETECTED; SARS-CoV-2 -RESP PCR PANEL NOT DETECTED
[2021-07-15] MEDS ORDERED: SODIUM CHLORIDE FLUSH 0.9% 10 ML SYRINGE IVP PRN (06:36)
[2021-07-15] MEDS ORDERED: ACETAMINOPHEN 325 MG TABLET PO PRN (06:36)
--- NOTE | 2021-07-15 06:52 | HISTORY & PHYSICAL EXAMINATION ---
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 He went to sleep around 10 AM and suddenly woke up dyspneic 1 hour later. He denied chest pain, abdominal pain, nausea, vomiting, fever or chills. EMS was called and when EMS arrived his oxygen saturation was 86% on room air. In the ED his oxygen saturation was 90% and after breathing treatment it improved to 96% on room air. Work-up was fairly unremarkable with a white blood cell count of 6.7. Chest x-ray showed possible mild bibasilar infiltrate. It also reported marked left hemidiaphragm elevation. However the patient remained tachypneic with respiratory rates going as high as 30's and he was mildly tachycardic. He also has a mild wheeze. As a result he was presented for admission for closer monitoring. History - Past Medical History Cardiovascular: reports: Hypertension Respiratory: reports: COPD, Pneumonia, Sleep apnea, CPAP use Endocrine/Autoimmune: reports: None GI: reports: None : reports: None HEENT: reports: Chronic vision loss, Other Psych: reports: None Musculoskeletal: Derm: reports: None MRSA Hx?: No - Past Surgical History General: reports: Colonoscopy Ortho: reports: Hip replacement, Other HEENT: reports: Cataracts, Tonsil/Adenoidectomy Derm: reports: Skin cancer surgery - Family & Social History Social History Notes: Lives in [place]. Originally from [place] moved around in the lived in [facility] [place] and then [place] for sometime till they retired on [facility]. 2 sons one in [place] and one in the [place]. - Substance History Use: Uses substance without health or social issues: Alcohol (Glass of Wine nightly ) - POLST Patient has POLST: No POLST Status: DNR Meds/Allgy - Home Medications Home Medications: Ambulatory Orders Medication Instructions Recorded Confirmed Hydrochlorothiazide 25 mg PO DAILY 05/12/13 07/15/21 Multivitamin with Iron 1 tab PO DAILYWM 05/12/13 07/15/21 [Multivitamins with Iron] Pravastatin Sodium 20 mg PO QPM 05/12/13 07/15/21 Psyllium Husk/Calcium Carb 1 each PO DAILY PRN 05/12/13 07/15/21 [Metamucil Plus Calcium Capsule] Tiotropium [place] [Spiriva] 1 puffs INH DAILY 05/12/13 07/15/21 Aspirin [Aspir-Low] 81 mg PO DAILY 11/08/15 07/15/21 Losartan Potassium 50 mg PO DAILY 12/17/16 07/15/21 Metoprolol Tartrate 12.5 mg PO BID 12/17/16 07/15/21 - Allergies Allergies/Adverse Reactions: Allergies Allergy/AdvReac Type Severity Reaction Status Date / Time hydrocodone AdvReac faints Verified 07/15/21 00:31 oxycodone [Oxycodone] AdvReac Unknown Verified 07/15/21 00:31 Review of Systems - Constitutional Constitutional: denies: Fatigue, Fever, Chills - Eyes Eyes: denies: Pain - Ears, Nose & Throat Ears, Nose & Throat: denies: Ear pain - Cardiovascular Cariovascular: reports: Edema (trace). denies: Irregular heart rate, Palpitations, Chest pain - Respiratory Respiratory: reports: Wheezing, SOB at rest, SOB with exertion. denies: Cough, Sputum production - Gastrointestinal Gastrointestinal: denies: Abdominal pain, Abdominal distention, Constipation, Nausea, Vomiting - Genitourinary Genitourinary: denies: Dysuria, Frequency, Urgency, Hematuria - Musculoskeletal Musculoskeletal: denies: Muscle pain, Back pain - Integumentary Integumentary: denies: Rash, Pruritis - Neurological Neurological: denies: General weakness, Focal weakness, Headache, Dizziness - Psychiatric Psychiatric: denies: Depression, Anxiety - Endocrine Endocrine: denies: Polyuria, Polydypsia Prior Level of Functionality: Patient is normally independent of activities of daily living. Exam - Vital Signs Vital Signs: Vital Signs x48h Temp Pulse Resp BP Pulse Ox 07/15/21 06:17 36.1 C L 98 25 H 163/65 H 96 07/15/21 04:20 95 24 147/60 H 95 07/15/21 01:53 99 27 H 96 07/15/21 01:40 103 H 20 07/15/21 01:38 98 21 134/64 H 95 07/15/21 01:03 23 138/64 H 94 07/15/21 00:50 83 24 07/15/21 00:31 36.4 C L 89 33 H 170/73 H 97 - Physical Exam General Appearance: positive: No acute distress, Alert Eyes Bilateral: positive: PERRL, EOMI ENT: positive: No signs of dehydration Neck: positive: Trachea midline Respiratory: positive: Chest non-tender, Wheezes (mild respiratory wheeze) Cardiovascular: positive: Tachycardia Abdomen: positive: Non-tender, No organomegaly, Nml bowel sounds, No distention. negative: Guarding, Rebound Back: positive: Nml inspection Skin: positive: Color nml, No rash, Warm, Dry Extremities: positive: Non-tender, Full ROM, Nml appearance Neurologic/Psychiatric: positive: Oriented x3, Mood/affect nml Conclusion/Plan - Problem List (1) Acute and chronic respiratory failure with hypoxia Conclusion/Plan: DuoNeb ordered as needed. Chest x-ray showed mild basilar infiltrates. As a result patient was started on azithromycin. We will monitor patient through the day. If stable on room air we will plan to discharge later in the evening. (2) COPD (chronic obstructive pulmonary disease) Conclusion/Plan: Perforomist and budesonide ordered twice daily. DuoNeb as needed. Home CPAP ordered. (3) Hyperlipidemia Conclusion/Plan: On pravastatin 20 mg p.o. daily. (4) Hypertension Conclusion/Plan: On metoprolol, losartan and hydrochlorothiazide. Hydralazine 10 mg IV every 6 hours as needed ordered for systolic blood pressure greater than 160. Qualifiers: Hypertension type: essential hypertension Qualified Code(s): I10 - Essential (primary) hypertension (5) DARWIN on CPAP Conclusion/Plan: Home CPAP ordered. - Lab Results Fish Bones: 07/15/21 00:48 07/15/21 00:48 Core Measures - Anticipated LOS I expect patient to be DC'd or transferred within 96 hours.: Yes - DVT/VTE - Prophylaxis VTE/DVT Device ordered at admit?: Yes VTE/DVT Prophylaxis med ordered at admit?: Yes
--- NOTE | 2021-07-15 07:46 | XRAY Report ---
PROCEDURE: Chest 1 View X-Ray INDICATIONS: Chest Pain TECHNIQUE: One view of the chest was acquired. COMPARISON: April 16, 2017 FINDINGS: SUPPORT DEVICES: None. LUNGS/PLEURA: Bibasilar streaky densities. No pleural effusion or pneumothorax MEDIASTINUM: Enlargement the cardiac silhouette, partially exaggerated by technique. BONES/SOFT TISSUES: No acute abnormality. Redemonstrated elevation of the left diaphragm, unchanged f rom prior study. IMPRESSION: 1.Bibasilar streaky densities, which may reflect atelectasis. An infectious process cannot be exclude d. Reviewed by: Rudy Potts MD on 07/15/2021 7:45 AM [facility] Approved by: Rudy Potts MD on 07/15/2021 7:45 AM PST Station ID: [id number]
--- NOTE | 2021-07-15 09:05 | PHARMACY PROGRESS NOTE ---
- Best Possible Medication History Admit Date and Time: 07/15/21 0636 Processed by: Pharmacy Medication History completed: Yes Secondary Source(s): Pharmacy records, Insurance records As the person ultimately responsible for medication therapy, providers are able to order a medication from an existing home medication list in [facility] via the "Reconcile Routine" prior to Confirmation of that medication by support services specialist. Such practice is discouraged except when the physician, in their clinical judgment, deems that a medical need exists for a medication without regard to previous use.
[2021-07-15] MEDS: AZITHROMYCIN 250 MG TABLET PO SCH (09:14)
[2021-07-15] MEDS: SODIUM CHLORIDE FLUSH 0.9% 10 ML SYRINGE IVP SCH ×3 (09:14→23:47)
[2021-07-15] MEDS: IPRATROPIUM/ALBUTEROL 3 ML NEB INH PRN ×2 (11:44→20:24)
[2021-07-15] MEDS: LOSARTAN 50 MG TABLET PO SCH (18:38)
[2021-07-15] MEDS: METOPROLOL TARTRATE 25 MG TABLET PO SCH ×2 (18:39→21:36)
[2021-07-15] MEDS ORDERED: hydrALAZINE INJ 20 MG/ML VIAL IVP PRN (19:28)
[2021-07-15] MEDS: FORMOTEROL FUMARATE NEB 20 MCG/2 ML INH SCH (20:24)
[2021-07-15] MEDS: BUDESONIDE 0.5 MG/2 ML NEB INH SCH (20:24)
[2021-07-15] MEDS ORDERED: traZODone 50 MG TABLET PO SCH (21:00)
[2021-07-15] MEDS ORDERED: PRAVASTATIN 10 MG TABLET PO SCH (21:00)
--- NOTE | 2021-07-16 07:07 | Discharge Plan ---
Discharge Plan Problem Reviewed?: Yes Disposition: Home, Self Care Condition: Stable Prescriptions: Azithromycin 250 mg PO DAILY 2 Days #2 tablet Diet: Cardiac Instruction Topics: COPD Dc Health Concerns: You were admitted on 07/15/2021 around 7 AM after presenting to the hospital with difficulty breathing. It was reported that the oxygen was also low at 86% at home. You received breathing treatment in the emergency room. Your breathing improved from your initial presentation. Further work-up included a chest x-ray which suggested infiltrates as a result you were placed on empiric antibiotic of azithromycin. You received 2 doses while in the hospital and will be prescribed azithromycin to 50 mg to take 1 tablet daily for the next 2 days. You are to resume your home medications upon returning home. This plan was discussed with you and also explained to your granddaughter over the phone. You both expressed understanding and are agreeable with the plan. Should you have breathing/respiratory status worsen do not hesitate to seek medical attention again. Additional Instructions or Follow Up instructions: You were seen in the emergency department for COPD exacerbation No Smoking: If you smoke, Please STOP! Call for help.
--- NOTE | 2021-07-16 07:07 | DISCHARGE SUMMARY ---
Discharge Summary Admit Date: 07/15/21 Discharge Date: 07/16/21 Discharging Provider: Jose Ulloa Primary Care Provider: Sandra Buchanan Code Status: Do Not Attempt Resuscitation Condition at Discharge: Stable Discharge Disposition: 01 Home, Self Care - DIAGNOSES Admission Diagnoses: Acute on chronic respiratory failure with hypoxia COPD Hyperlipidemia Hypertension Obstructive sleep apnea on CPAP Discharge Diagnoses with Status of Each Condition: Acute on chronic respiratory failure with hypoxia: Resolved COPD: Stable. At baseline Hyperlipidemia: Chronic. Continue home medications Hypertension: Chronic. 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 He went to sleep around 10 AM and suddenly woke up dyspneic 1 hour later. He denied chest pain, abdominal pain, nausea, vomiting, fever or chills. EMS was called and when EMS arrived his oxygen saturation was 86% on room air. In the ED his oxygen saturation was 90% and after breathing treatment it improved to 96% on room air. Work-up was fairly unremarkable with a white blood cell count of 6.7. Chest x-ray showed possible mild bibasilar infiltrate. It also reported marked left hemidiaphragm elevation. However the patient remained tachypneic with respiratory rates going as high as 30's and he was mildly tachycardic. He also has a mild wheeze. As a result he was presented for admission for closer monitoring. - HOSPITAL COURSE Hospital Course: Patient's hospital stay was fairly unremarkable. He was prescribed azithromycin 250 mg p.o. daily. He received two doses while in the hospital. He was prescribed two more tablets upon discharge to take one daily. He was on room air throughout his hospital stay. He was able to ambulate using a walker. Initially his blood pressure was significantly elevated into the 180s. However this was because he had not taken his medications for the day. This was successfullly managed upon resumption of his medications. He was discharged in stable condition. - ALLERGIES Allergies/Adverse Reactions: Allergies Allergy/AdvReac Type Severity Reaction Status Date / Time hydrocodone AdvReac faints Verified 07/15/21 00:31 oxycodone [Oxycodone] AdvReac Unknown Verified 07/15/21 00:31 - MEDICATIONS Home Medications: Ambulatory Orders Medication Instructions Recorded Confirmed Hydrochlorothiazide 25 mg PO DAILY 05/12/13 07/15/21 Multivitamin with Iron 1 tab PO DAILYWM 05/12/13 07/15/21 [Multivitamins with Iron] Pravastatin Sodium 20 mg PO QPM 05/12/13 07/15/21 Psyllium Husk/Calcium Carb 1 each PO DAILY PRN 05/12/13 07/15/21 [Metamucil Plus Calcium Capsule] Tiotropium [place] [Spiriva] 1 puffs INH DAILY 05/12/13 07/15/21 Aspirin [Aspir-Low] 81 mg PO DAILY 11/08/15 07/15/21 Losartan Potassium 50 mg PO DAILY 12/17/16 07/15/21 Metoprolol Tartrate 12.5 mg PO BID 12/17/16 07/15/21 Azithromycin 250 mg PO DAILY 2 Days #2 tablet 07/16/21 - PHYSICAL EXAM AT DISCHARGE General Appearance: positive: No acute distress, Alert Eyes Bilateral: positive: PERRL, EOMI ENT: positive: No signs of dehydration Neck: positive: No JVD, Trachea midline Respiratory: positive: Chest non-tender, No respiratory distress, Breath sounds nml. negative: Wheezes, Rales, Rhonchi Cardiovascular: positive: Regular rate & rhythm, No murmur Abdomen: positive: Non-tender, No distention. negative: Guarding, Rebound Back: positive: Nml inspection Skin: positive: Color nml, No rash, Warm, Dry Extremities: positive: Non-tender, No pedal edema Neurologic/Psychiatric: positive: Oriented x3, Mood/affect nml - LABS Result Diagrams: 07/15/21 00:48 07/15/21 00:48 - TIME SPENT Time Spent in Discharge (Minutes): 15
[2021-07-16] MEDS: AZITHROMYCIN 250 MG TABLET PO SCH (08:28)
[2021-07-16] MEDS: METOPROLOL TARTRATE 25 MG TABLET PO SCH (08:28)
[2021-07-16] MEDS: LOSARTAN 50 MG TABLET PO SCH (08:29)
[2021-07-16] MEDS: SODIUM CHLORIDE FLUSH 0.9% 10 ML SYRINGE IVP SCH (08:32)
[2021-07-16] MEDS: IPRATROPIUM/ALBUTEROL 3 ML NEB INH PRN (08:54)
[2021-07-16] MEDS: FORMOTEROL FUMARATE NEB 20 MCG/2 ML INH SCH (08:54)
[2021-07-16] MEDS: BUDESONIDE 0.5 MG/2 ML NEB INH SCH (08:54)
[2021-07-16] MEDS ORDERED: hydroCHLOROthiazide 25 MG TABLET PO SCH (09:00)
[2021-07-16] MEDS ORDERED: ASPIRIN EC 81 MG TABLET PO SCH (09:00)
[2021-07-16 09:11] VITALS: BP 149/53
== END 2021-07-16 09:48 | disposition home or self-care (01) ==
LOC: EDUNIT# → ED 00:21 → MS2 06:36
PROVIDERS: ADMIT Internal Medicine; ATTEND Internal Medicine
DX: J96.21 Acute and chronic respiratory failure with hypoxia (principal); J44.1 Chronic obstructive pulmonary disease with (acute) exacerbation; E78.5 Hyperlipidemia, unspecified; I10 Essential (primary) hypertension; G47.33 Obstructive sleep apnea (adult) (pediatric); Z85.821 Personal history of Merkel cell carcinoma; Z85.46 Personal history of malignant neoplasm of prostate; Z79.899 Other long term (current) drug therapy; Z66 Do not resuscitate; Z20.822 Contact with and (suspected) exposure to COVID-19
CPT/HCPCS: 36415; 71045; 80053; 82803; 83690; 83880; 85025; 87040; 87631; 94640; 96374; 99284; 99285; A9270; J7626; 0202U

== ENCOUNTER 2021-08-21 13:36 | Outpatient (CLI) | payer MEDICARE, OTHER ==
--- NOTE | 2021-08-21 15:07 | XRAY Report ---
PROCEDURE: Chest 2 View X-Ray INDICATIONS: F/U PNEUMONIA TECHNIQUE: 2 view(s) of the chest. COMPARISON: July 15, 2021 FINDINGS: SUPPORT DEVICES: None. LUNGS/PLEURA: Redemonstrated bibasilar densities, which may reflect atelectasis. Persistent elevation of the left diaphragm with air-fluid levels in the colon. MEDIASTINUM: The cardiac silhouette is partially obscured. BONES/SOFT TISSUES: No acute abnormality. IMPRESSION: 1.No significant interval change. 2.Prominent air-fluid levels underlying the left diaphragm, which is nonspecific but may reflect ileu s or obstruction. Consider CT imaging for further evaluation as clinically warranted. Reviewed by: Rudy Potts MD on 08/21/2021 3:06 PM PST Approved by: Rudy Potts MD on 08/21/2021 3:06 PM [facility] Station ID: [id number]
== END 2021-08-21 13:37 | disposition home or self-care (01) ==
LOC: DI 13:36
PROVIDERS: ATTEND Internal Medicine
DX: J18.9 Pneumonia, unspecified organism (principal)

== ENCOUNTER 2021-12-09 23:49 | Outpatient (CLI) | payer MEDICARE, OTHER | END 2021-12-09 23:50 | disposition left against medical advice (07) | LOC: EMS 23:49 | DX: R06.02 Shortness of breath (principal); R06.2 Wheezing ==

== ENCOUNTER 2021-12-11 16:27 | Outpatient (CLI) | payer MEDICARE, OTHER ==
[2021-12-11 19:17] LABS: CALCIUM 9.2 mg/dL (8.5-10.3); CREATININE 1.7 mg/dL (0.6-1.2); POTASSIUM 4.3 mmol/L (3.5-5.0)
== END 2021-12-11 23:59 | disposition home or self-care (01) ==
LOC: LAB.R 16:27
PROVIDERS: ATTEND Internal Medicine
DX: N18.9 Chronic kidney disease, unspecified (principal)
CPT/HCPCS: 80048

== ENCOUNTER 2022-02-22 04:29 | Inpatient (IN) | payer MEDICARE, OTHER ==
--- NOTE | 2022-02-22 04:31 | ED Physician Documentation ---
PD HPI DYSPNEA - Stated complaint Stated Complaint: SOA - History obtained from History obtained from: Patient, EMS - History of Present Illness Timing - onset: Enter time (23:00), Last night Timing - details: Abrupt onset Pain level now: 0 Improved by: Rest Worsened by: Exertion Associated symptoms: Cough. No: Fever, Wheezing, Chest pain / discomfort, Palpitations, Diaphoresis, Bilateral edema, Unilateral edema Similar symptoms before: Diagnosis (COPD) - Additional information Additional information: BIBA for dyspnea. Patient has COPD, does not use supplemental oxygen at home. He had rapidly increasing dyspnea since approximately 23:00 which did not improve despite using his albuterol MDI x 3 and thus he called 911. EMS found patient to be tachypneic with room-air pulse ox of 88%, only able to speak 1-2 words at a time. Given duoneb by EMS as well as IV solu-medrol. Denies chest pain, denies headache. Arrives with supplemental oxygen by mask just as the duoneb is finishing, pulse ox is mid 90s with good pleth. Review of Systems Constitutional: denies: Fever, Chills, Sweats Eyes: reports: Reviewed and negative Ears: reports: Reviewed and negative Nose: reports: Reviewed and negative Throat: reports: Reviewed and negative Cardiac: reports: Reviewed and negative Respiratory: reports: Dyspnea, Cough, Wheezing. denies: Hemoptysis GI: reports: Reviewed and negative : denies: Dysuria, Frequency Skin: reports: Reviewed and negative Musculoskeletal: reports: Reviewed and negative Neurologic: reports: Reviewed and negative PD PAST MEDICAL HISTORY - Past Medical History Cardiovascular: Hypertension Respiratory: COPD, Pneumonia, Sleep apnea, CPAP use Neuro: None Endocrine/Autoimmune: None GI: None : None HEENT: Chronic vision loss, Other Psych: None Musculoskeletal:  Derm: None - Past Surgical History Past Surgical History: Yes General: Colonoscopy Ortho: Hip replacement, Other HEENT: Cataracts, Tonsil/Adenoidectomy Derm: Skin cancer surgery - Present Medications Home Medications: Ambulatory Orders Medication Instructions Recorded Confirmed Hydrochlorothiazide 25 mg PO DAILY 05/12/13 02/22/22 Pravastatin Sodium 20 mg PO QPM 05/12/13 02/22/22 Tiotropium [place] [Spiriva] 1 puffs INH DAILY 05/12/13 02/22/22 Losartan Potassium 50 mg PO DAILY 12/17/16 02/22/22 Metoprolol Tartrate 12.5 mg PO BID 12/17/16 02/22/22 - Allergies Allergies/Adverse Reactions: Allergies Allergy/AdvReac Type Severity Reaction Status Date / Time hydrocodone AdvReac faints Verified 02/22/22 04:49 oxycodone [Oxycodone] AdvReac Unknown Verified 02/22/22 04:49 - Social History Does the pt smoke?: No Smoking Status: Former smoker Does the pt drink ETOH?: No Does the pt have substance abuse?: No - Immunizations Immunizations are current?: Yes - POLST Patient has POLST: No POLST Status: DNR PD ED PE NORMAL - Vitals Vital signs reviewed: Yes - General General: Alert and oriented X 3, Well developed/nourished, Other (mild respiratory distress on arrival but when transferred from EMS stretcher to ED stretcher, patient becomes severely dyspneic, gasping and appears panicked) - HEENT HEENT: Moist mucous membranes - Neck Neck: No JVD - Cardiac Cardiac: No murmur - Abdomen Abdomen: Soft, Non tender - Derm Derm: Normal color, Warm and dry - Extremities Extremities: No edema - Neuro Neuro: Alert and oriented X 3 Eye Opening: Spontaneous Motor: Obeys Commands Verbal: Oriented GCS Score: 15 PD ED PE EXPANDED - Cardiac Cardiac: Tachy, Regular Rhythm - Respiratory Respiratory: Wheezing (inspiratory and expiratory wheezing), Rhonchi (course rhonchi bilaterally) Results - Vitals Vitals: Vital Signs - 24 hr 02/22/22 02/22/22 02/22/22 04:38 04:42 04:52 Temperature 36.8 C Heart Rate 118 H 110 H 101 H Respiratory 35 H 25 H Rate Blood Pressure 219/95 H O2 Saturation 96 93 02/22/22 02/22/22 02/22/22 05:03 05:12 05:30 Temperature Heart Rate 92 94 87 Respiratory 24 26 H 22 Rate Blood Pressure 158/69 H 155/65 H O2 Saturation 99 98 02/22/22 02/22/22 02/22/22 05:41 06:00 06:30 Temperature 36.6 C Heart Rate 89 90 89 Respiratory 22 21 20 Rate Blood Pressure 155/65 H 165/83 H 171/83 H O2 Saturation 98 97 97 02/22/22 02/22/22 02/22/22 07:00 07:30 08:00 Temperature Heart Rate 90 86 96 Respiratory 24 20 25 H Rate Blood Pressure 177/66 H 155/70 H 160/70 H O2 Saturation 98 98 98 Oxygen O2 Source Nasal cannula Oxygen Flow Rate 2 - EKG (time done) No standard instances Rate: Rate (enter#) (108) Rhythm: Sinus tachycardia [place]: Normal Intervals: Normal SC QRS: Normal Ischemia: Normal ST segments, T wave inversion (V5, V6, I, aVL) - Labs Labs: Laboratory Tests 02/22/22 02/22/22 02/22/22 05:21 05:21 05:21 WBC 13.0 H RBC 3.78 L Hgb 11.0 L Hct 33.5 L MCV 88.6 MCH 29.1 MCHC 32.8 RDW 13.8 Plt Count 214 MPV 9.4 Neut # (Auto) 11.7 H Lymph # (Auto) 0.4 L [place] # (Auto) 0.7 Eos # (Auto) 0.0 Baso # (Auto) 0.0 Absolute Nucleated RBC 0.00 Nucleated RBC % 0.0 Sodium 141 Potassium 4.2 Chloride 105 Carbon Dioxide 26 Anion Gap 10.0 BUN 47 H Creatinine 1.8 H Estimated GFR (MDRD) 36 L Glucose 134 H Lactic Acid Calcium 9.2 Total Bilirubin 0.6 AST 25 ALT 20 Alkaline Phosphatase 50 Troponin I High Sens 18.6 B-Natriuretic Peptide Total Protein 6.9 Albumin 4.0 Globulin 2.9 Albumin/Globulin Ratio 1.4 Lipase 33 Nasal Adenovirus (PCR) Nasal B. parapertussis DNA (PCR) Nasal Coronavir 229E PCR Nasal Coronavir HKU1 PCR Nasal Coronavir NL63 PCR Nasal Coronavir OC43 PCR Nasal Enterovir/Rhinovir PCR Nasal Influenza B PCR Nasal Influenza A PCR Nasal Parainfluen 1 PCR Nasal Parainfluen 2 PCR Nasal Parainfluen 3 PCR Nasal Parainfluen 4 PCR Nasal RSV (PCR) Nasal B.pertussis DNA PCR Nasal C.pneumoniae (PCR) [place] Human Metapneumo PCR Nasal M.pneumoniae (PCR) Nasal SARS-CoV-2 (PCR) 02/22/22 02/22/22 02/22/22 05:21 05:21 05:48 WBC RBC Hgb Hct MCV MCH MCHC RDW Plt Count MPV Neut # (Auto) Lymph # (Auto) [place] # (Auto) Eos # (Auto) Baso # (Auto) Absolute Nucleated RBC Nucleated RBC % Sodium Potassium Chloride Carbon Dioxide Anion Gap BUN Creatinine Estimated GFR (MDRD) Glucose Lactic Acid 1.4 Calcium Total Bilirubin AST ALT Alkaline Phosphatase Troponin I High Sens B-Natriuretic Peptide 254 H Total Protein Albumin Globulin Albumin/Globulin Ratio Lipase Nasal Adenovirus (PCR) NOT DETECTED Nasal B. parapertussis DNA (PCR) NOT DETECTED Nasal Coronavir 229E PCR NOT DETECTED Nasal Coronavir HKU1 PCR NOT DETECTED Nasal Coronavir NL63 PCR NOT DETECTED Nasal Coronavir OC43 PCR NOT DETECTED Nasal Enterovir/Rhinovir PCR NOT DETECTED Nasal Influenza B PCR NOT DETECTED Nasal Influenza A PCR NOT DETECTED Nasal Parainfluen 1 PCR NOT DETECTED Nasal Parainfluen 2 PCR NOT DETECTED Nasal Parainfluen 3 PCR NOT DETECTED Nasal Parainfluen 4 PCR NOT DETECTED Nasal RSV (PCR) NOT DETECTED Nasal B.pertussis DNA PCR NOT DETECTED Nasal C.pneumoniae (PCR) NOT DETECTED [place] Human Metapneumo PCR NOT DETECTED Nasal M.pneumoniae (PCR) NOT DETECTED Nasal SARS-CoV-2 (PCR) NOT DETECTED - Rads (name of study) chest xray Radiology: Prelim report reviewed, See rad report PD MEDICAL DECISION MAKING - ED course Complexity details: reviewed old records, reviewed results, re-evaluated patient, considered differential, d/w patient ED course: Patient arrives in moderate respiratory distress but quickly becomes severely dyspneic simply from being moved from the EMS stretcher to ED stretcher. He received duoneb and solu-medrol en route. He is put on BiPAP in ED with rapid improvement, eventually being taken off of BiPAP and placed on 2 liters [place] oxygen and maintaining saturations of 96-97%. He still gets short of breath with simple conversation, though. He is afebrile, has mild leukocytosis. Most notable on testing is "large rounded area of airspace disease within the right midlung field and patchy consolidatio n within the medial aspect of the right lower lobe" (per radiologist's reading), with overall impression of "bilateral areas of airspace disease...most consistent with a multifocal pneumonia". He is COVID and influenza NEGATIVE. He is given IV Rocephin and zithromax. His PSI score places him in class IV (moderate risk). D/W Dr. Fierro, will admit to [facility] Departure - Departure Disposition: 66 [facility] DC/Xfer Clinical Impression: COPD exacerbation, CAP (community acquired pneumonia) Condition: Stable
[2022-02-22] MEDS ORDERED: ALBUTEROL NEB 2.5 MG/3 ML INH STA ×2 (04:48→14:25)
[2022-02-22 05:28] LABS: BASOPHILS % (AUTO) 0.2 %; HCT - HEMATOCRIT 33.5 % (42.0-52.0); LYMPHOCYTES # (AUTO) 0.4 10^3/uL (1.5-3.5); LYMPHOCYTES % (AUTO) 3.4 %; MEAN CORPUSCULAR HEMOGLOBIN 29.1 pg (27.0-31.0); MEAN CORPUSCULAR HGB CONC 32.8 g/dL (32.0-36.0); MEAN CORPUSCULAR VOLUME 88.6 fL (80.0-94.0); MEAN PLATELET VOLUME 9.4 fL (7.4-11.4); MONOCYTES # (AUTO) 0.7 10^3/uL (0.0-1.0); MONOCYTES % (AUTO) 5.6 %; NEUTROPHILS # (AUTO) 11.7 10^3/uL (1.5-6.6); NEUTROPHILS % (AUTO) 90.3 %; PLT - PLATELET COUNT 214 10^3/uL (130-450); RED BLOOD COUNT 3.78 10^6/uL (4.70-6.10); RED CELL DISTRIBUTION WIDTH 13.8 % (12.0-15.0)
[2022-02-22 05:42] LABS: ALBUMIN/GLOBULIN RATIO 1.4 (1.0-2.2); BILIRUBIN,TOTAL 0.6 mg/dL (0.2-1.0); CALCIUM 9.2 mg/dL (8.5-10.3); CREATININE 1.8 mg/dL (0.6-1.2); POTASSIUM 4.2 mmol/L (3.5-5.0); TOTAL PROTEIN 6.9 g/dL (6.7-8.2)
[2022-02-22 06:52] LABS: B. PARAPERTUSSIS- RESP PCR PAN NOT DETECTED; B. PERTUSSIS- RESP PCR PANEL NOT DETECTED; C. PNEUMONIAE- RESP PCR PANEL NOT DETECTED; CORONAVIRUS 229E-RESP PCR NOT DETECTED; CORONAVIRUS HKU1-RESP PCR NOT DETECTED; CORONAVIRUS NL63-RESP PCR NOT DETECTED; CORONAVIRUS OC43-RESP PCR NOT DETECTED; HUMAN METAPNEUMOVIRUS NOT DETECTED; INFLUENZA A- RESP PCR PANEL NOT DETECTED; INFLUENZA B - RESP PCR PANEL NOT DETECTED; M. PNEUMONIAE- RESP PCR PANEL NOT DETECTED; PARAINFLUENZA VIRUS 1 NOT DETECTED; PARAINFLUENZA VIRUS 2 NOT DETECTED; PARAINFLUENZA VIRUS 3 NOT DETECTED; PARAINFLUENZA VIRUS 4 NOT DETECTED; RHINOVIRUS/ENTEROVIRUS NOT DETECTED; RSV- RESP PCR PANEL NOT DETECTED; SARS-CoV-2 -RESP PCR PANEL NOT DETECTED
[2022-02-22] MEDS ORDERED: cefTRIAXone 1 GM in SODIUM CHLORIDE 0.9% MINIBAG 100 ML IV STA (07:31)
[2022-02-22] MEDS ORDERED: AZITHROMYCIN INJ 500 MG in SODIUM CHLORIDE 0.9% 250 ML IV STA (07:32)
--- NOTE | 2022-02-22 07:32 | XRAY Report ---
PROCEDURE: Chest 1 View X-Ray INDICATIONS: chest pain TECHNIQUE: One view of the chest was acquired. COMPARISON: Chest x-ray 2 views, 08/21/2021. FINDINGS: Surgical changes and devices: None. Lungs and pleura: Bilateral perihilar airspace infiltrates. Chronic left hemidiaphragm elevation. No pleural effusions or pneumothorax. Mediastinum: Mediastinal contours appear normal. Heart size is moderately increased. Bones and chest wall: No suspicious bony lesions. Overlying soft tissues appear unremarkable. IMPRESSION: 1. Bilateral airspace infiltrates compatible with multifocal pneumonia or pulmonary edema. 2. Moderate cardiomegaly. 3. Chronic left hemidiaphragm elevation. No significant discrepancy with the preliminary interpretation. Reviewed by: Mitul Moy MD on 02/22/2022 7:30 AM PDT Approved by: Mitul Moy MD on 02/22/2022 7:30 AM PDT Station ID: [id number]
[2022-02-22] MEDS ORDERED: IPRATROPIUM/ALBUTEROL 3 ML NEB INH STA (09:26)
[2022-02-22] MEDS ORDERED: methylPREDNISolone SUCCINATE 40 MG/ML VIAL IVP STA (14:25)
--- NOTE | 2022-02-22 15:53 | ED Physician Documentation ---
ED Addendum - Addendum Addendum: 02/22/22 15:51 I rechecked the patient soon after change of shift. He is more comfortable. He is able to speak in fairly complete sentences. No accessory muscle use. Oxygenation is good on just nasal cannula. He is given a repeat nebulizer treatment. The patient's admission was delayed due to needing to wait for discharges from the hospital. While in the ER he was continued with IV fluids and every 2 hours nebulizer and was given a repeat dose of Solu-Medrol 40 mg at 6-hour interval. He is not yet due for repeat antibiotics. Subsequently discharges from the hospital did occur in I talked with the hospitalist who will now write orders. The patient remained stable and should be able to go to the floor at this point since he has been 8 hours now without any needing BiPAP and not showing any decompensation.
[2022-02-22] MEDS ORDERED: ACETAMINOPHEN 325 MG TABLET PO PRN (15:57)
[2022-02-22] MEDS ORDERED: ONDANSETRON 4 MG/2 ML VIAL IVP PRN (15:57)
--- NOTE | 2022-02-22 16:12 | HISTORY & PHYSICAL EXAMINATION ---
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 He developed shortness of breath rapidly worsening at about 11 PM last night and called an ambulance. He was found to have tachypnea and desaturating to 86% on room air, felt panicky. He was given Solu-Medrol and nebulizer by EMS. In the ER he was still very panicky and tachypneic at 40 breaths/min and was immediately put on BiPAP for stabilization. Work-up showed a WBC of 13, normal lactic acid, BNP of 254, BUN/creatinine of 47/1.8. COVID test is negative. Chest x-ray showed right sided mid and upper lung infiltrates and left-sided atelectasis plus left hemidiaphragm elevation which is old. Because of no fever or significant sepsis labs, no blood tests cultures were done, per the ED provider. He was given Zithromax and Rocephin and put on supplemental oxygen, and was slowly able to be titrated down to 2 L/min by nasal cannula. The ED provider reached out to the Hospitalist team for admission for this pt to manage a CAP and COPD exacerbation and acute respiratory failure with hypoxia. I reviewed his CODE status wishes with him at bedside and he wants to be a Full Code. History - Past Medical History Cardiovascular: reports: Hypertension Respiratory: reports: COPD, Pneumonia, Sleep apnea, CPAP use Neuro: reports: None Endocrine/Autoimmune: reports: None GI: reports: None : reports: None HEENT: reports: Chronic vision loss, Other Psych: reports: None Musculoskeletal: Derm: reports: None MRSA Hx?: No - Past Surgical History General: reports: Colonoscopy Ortho: reports: Hip replacement, Other HEENT: reports: Cataracts, Tonsil/Adenoidectomy Derm: reports: Skin cancer surgery - Family & Social History Family History Comment/Other: No diseases run in the family. He has 1 son and 1 daughter who are healthy and live out of his home. Living arrangement: At home Living Situation: With spouse/s.o. Social History Notes: Lives in [place] with . Originally from [place] moved around in the lived in [facility] and then [place] for sometime until they retired on [facility]. 2 children; one in [place] and one in the [place]. He is an ex-smoker who quit 40 years ago. He drinks 1 glass of wine nightly with dinner. No illicit drug use. He keeps busy all day puttering around the house, has different chores. - Substance History Use: Uses substance without health or social issues: Alcohol (Glass of Wine nightly ) - POLST Patient has POLST: No POLST Status: DNR Meds/Allgy - Home Medications Home Medications: Ambulatory Orders Medication Instructions Recorded Confirmed Hydrochlorothiazide 25 mg PO DAILY 05/12/13 02/22/22 Pravastatin Sodium 20 mg PO QPM 05/12/13 02/22/22 Tiotropium [place] [Spiriva] 1 puffs INH DAILY 05/12/13 02/22/22 Losartan Potassium 50 mg PO DAILY 12/17/16 02/22/22 Metoprolol Tartrate 25 mg PO BID 12/17/16 02/22/22 - Allergies Allergies/Adverse Reactions: Allergies Allergy/AdvReac Type Severity Reaction Status Date / Time hydrocodone AdvReac faints Verified 02/22/22 04:49 oxycodone [Oxycodone] AdvReac Unknown Verified 02/22/22 04:49 Review of Systems - Respiratory Respiratory: reports: SOB at rest, SOB with exertion - All Other Systems All Other Systems: reports: Reviewed and negative Exam - Vital Signs Vital Signs: Vital Signs x48h Temp Pulse Resp BP Pulse Ox 02/22/22 15:30 87 21 145/62 H 95 02/22/22 15:00 98 19 144/89 H 97 02/22/22 14:39 88 24 02/22/22 14:30 36.6 C 84 22 143/63 H 99 02/22/22 10:30 87 19 149/68 H 97 02/22/22 09:52 90 24 158/72 H 97 02/22/22 09:38 88 22 02/22/22 08:30 91 27 H 160/70 H 99 - Physical Exam General Appearance: positive: No acute distress, Alert Eyes Bilateral: positive: Other (Lower eye lid swollen/edematous) ENT: positive: ENT inspection nml, No signs of dehydration Neck: positive: Nml inspection, No JVD Respiratory: positive: No respiratory distress, Breath sounds nml, Other (Prolonged expiratory phase, scattered very minimal wheeze posterior) Cardiovascular: positive: Regular rate & rhythm, No murmur Abdomen: positive: Non-tender, No organomegaly, Nml bowel sounds, No distention Skin: positive: No rash, Warm, Dry Extremities: positive: Non-tender, No pedal edema Neurologic/Psychiatric: positive: Oriented x3 (Non-focal) Conclusion/Plan - Problem List (1) Acute respiratory failure with hypoxia Conclusion/Plan: Despite the work-up showing chest x-ray as a cause, he denies a cough, has had no exposure to people that are ill and his symptoms came on suddenly, more like flash pulmonary edema. He got better with several hours of BiPAP titrated to supplemental oxygen which is a very rapid improvement for somebody with COPD and pneumonia We will continue to give supplemental oxygen as needed to keep saturations 88% or greater in a COPD year. Titrate O2 down as possible as we treat the underlying problem, the pneumonia and COPD exacerbation. On the day of discharge she will need oximetry walk testing to see if he requires home oxygen (2) CAP (community acquired pneumonia) Conclusion/Plan: Will order sputum culture. Will begin empiric IV ceftriaxone and Zithromax. Will also give probiotic Qualifiers: Laterality: right Lung location: upper lobe of lung Qualified Code(s): J18.9 - Pneumonia, unspecified organism (3) COPD exacerbation Conclusion/Plan: Will give patient nebulizer scheduled and as needed, IV steroids and inhaled steroids, Mucinex for pulmonary toilet and supplemental oxygen. We will treat the underlying cause of his COPD exacerbation which is the pneumonia, with antibx (4) KI (acute kidney injury) Conclusion/Plan: This is likely from his use of diuretics. Will hold his diuretic and give a 1 to 2 days of IV fluids. Avoid nephrotoxins Follow BMP daily. (5) DARWIN on CPAP Conclusion/Plan: Will order his home CPAP device to be used here. If he should require oxygen bled into the CPAP which would be a BiPAP he would need to go to the ICU (6) Hypertension Conclusion/Plan: Will order his home blood pressure meds to be used, once the list is reconciled Qualifiers: Hypertension type: essential hypertension Qualified Code(s): I10 - Essential (primary) hypertension (7) PVD (peripheral vascular disease) Conclusion/Plan: Patient describes that he has had carotid endarterectomy and has his vessels followed by a vascular surgeon every year. Will continue with his aspirin and statin and usual blood pressure control meds - Lab Results Fish Bones: 02/22/22 05:21 02/22/22 05:21 - Diagnostic Imaging Results Diagnostic Imaging Results: positive: Final report reviewed - Other Other Results/Comments: Attestation: The patient is expected to be discharged or transferred to another facility for 96 hours: Yes.
[2022-02-22] MEDS: SODIUM CHLORIDE 0.9% 1,000 ML IV SCH (16:55)
[2022-02-22] MEDS ORDERED: METOPROLOL TARTRATE 25 MG TABLET PO SCH (17:00)
[2022-02-22] MEDS: SODIUM CHLORIDE FLUSH 0.9% 10 ML SYRINGE IVP SCH (18:19)
[2022-02-22] MEDS: SACCHAROMYCES BOULARDII 250 MG CAPSULE PO SCH (18:19)
[2022-02-22] MEDS: BUDESONIDE 0.5 MG/2 ML NEB INH SCH (20:20)
[2022-02-22] MEDS: IPRATROPIUM/ALBUTEROL 3 ML NEB INH SCH (20:20)
[2022-02-22] MEDS ORDERED: ATORVASTATIN 10 MG TABLET PO SCH (21:00)
[2022-02-22] MEDS: METOPROLOL TARTRATE 25 MG TABLET PO SCH (21:04)
[2022-02-22] MEDS: guaiFENesin 600 MG TABLET PO SCH (21:05)
[2022-02-22] MEDS: methylPREDNISolone SUCCINATE 40 MG/ML VIAL IVP SCH (21:05)
[2022-02-23] MEDS: SODIUM CHLORIDE FLUSH 0.9% 10 ML SYRINGE IVP SCH ×3 (00:59→14:40)
[2022-02-23] MEDS: SODIUM CHLORIDE 0.9% 1,000 ML IV SCH (02:33)
[2022-02-23 05:26] LABS: BASOPHILS % (AUTO) 0.1 %; HCT - HEMATOCRIT 29.9 % (42.0-52.0); HGB - HEMOGLOBIN 9.9 g/dL (14.0-18.0); LYMPHOCYTES % (AUTO) 2.4 %; MEAN CORPUSCULAR HEMOGLOBIN 29.3 pg (27.0-31.0); MEAN CORPUSCULAR HGB CONC 33.1 g/dL (32.0-36.0); MEAN CORPUSCULAR VOLUME 88.5 fL (80.0-94.0); MEAN PLATELET VOLUME 9.7 fL (7.4-11.4); MONOCYTES % (AUTO) 2.7 %; NEUTROPHILS % (AUTO) 93.8 %; PLT - PLATELET COUNT 192 10^3/uL (130-450); RED BLOOD COUNT 3.38 10^6/uL (4.70-6.10); RED CELL DISTRIBUTION WIDTH 14.1 % (12.0-15.0); WHITE BLOOD COUNT 21.5 x10^3/uL (4.8-10.8)
[2022-02-23 05:40] LABS: ABNORMAL LYMPHS % (MANUAL) 0 %; LYMPHOCYTES % (MANUAL) 0 %
[2022-02-23 05:41] LABS: CALCIUM 8.9 mg/dL (8.5-10.3); CREATININE 1.5 mg/dL (0.6-1.2); MAGNESIUM 2.2 mg/dL (1.7-2.8); PHOSPHORUS 3.6 mg/dL (2.5-4.6); POTASSIUM 4.4 mmol/L (3.5-5.0)
[2022-02-23 06:01] LABS: BAND NEUTROPHILS % (MANUAL) 1 %; DIFFERENTIAL COMMENT MANUAL DIFFERENTIAL; MONOCYTES # (MANUAL) 0.6 10^3/uL (0.0-1.0); NEUTROPHILS # (MANUAL) 20.9 10^3/uL (1.5-6.6); PLATELET ESTIMATE, MANUAL NORMAL (130-450,000) (NORMAL); RBC MORPHOLOGY (MULTIPLE) NORMAL APPEARANCE (NORMAL)
[2022-02-23] MEDS: methylPREDNISolone SUCCINATE 40 MG/ML VIAL IVP SCH ×3 (06:28→22:15)
[2022-02-23] MEDS: BUDESONIDE 0.5 MG/2 ML NEB INH SCH ×2 (07:37→19:15)
[2022-02-23] MEDS: IPRATROPIUM/ALBUTEROL 3 ML NEB INH PRN (07:37)
[2022-02-23] MEDS: IPRATROPIUM/ALBUTEROL 3 ML NEB INH SCH ×4 (07:37→19:15)
[2022-02-23] MEDS ORDERED: MORPHINE 2 MG/ML CARPUJECT IVP STA (07:51)
[2022-02-23] MEDS ORDERED: ASPIRIN CHEW 81 MG TABLET PO STA (07:54)
--- NOTE | 2022-02-23 08:25 | XRAY Report ---
PROCEDURE: Chest 1 View X-Ray INDICATIONS: Sudden SOB, eval for flash pulm edema TECHNIQUE: One view of the chest was acquired. COMPARISON: Chest radiograph 02/22/2022 FINDINGS: Surgical changes and devices: Surgical clips seen in the right axilla. Lungs and pleura: Chronic elevation of the left hemidiaphragm is seen. Bilateral perihilar airspace o pacities are seen that may be mildly progressive compared to the radiographs from the day prior. No p leural effusion or pneumothorax. Mediastinum: Rightward shift of the mediastinum is again seen secondary to left hemidiaphragm elevati on, unchanged. The cardiac silhouette is enlarged. Bones and chest wall: No suspicious bony lesions. Overlying soft tissues appear unremarkable. IMPRESSION: 1.Bilateral airspace opacities are stable to minimally progressed when compared with radiographs from the day prior, again consistent with pulmonary edema or multifocal pneumonia. 2.Moderate cardiomegaly. 3.Chronic elevation of the left hemidiaphragm Reviewed by: Bartolo Perez MD on 02/23/2022 8:24 AM PDT Approved by: Bartolo Perez MD on 02/23/2022 8:24 AM PDT Station ID: [id number]
[2022-02-23] MEDS: SODIUM CHLORIDE FLUSH 0.9% 10 ML SYRINGE IVP PRN (08:35)
--- NOTE | 2022-02-23 09:50 | CT Report ---
PROCEDURE: CHEST WO INDICATIONS: SOB, CHFvs pneumonia,?dextrocardia vs pneumothorax TECHNIQUE: Noncontrast 1mm axial images were acquired from the pulmonary apices to the posterior costophrenic an gles. Axial 5 mm soft tissue kernel reconstructions were performed as well as 8 mm axial MIP and cor onal and sagittal 5 mm reformations. For radiation dose reduction, the following was used: automate d exposure control, adjustment of mA and/or kV according to patient size. COMPARISON: Chest radiograph 02/23/2022 and 05/25/2022. Chest CT 08/11/2015 FINDINGS: Image quality: Excellent. Lungs and pleura: Patchy predominantly peribronchovascular opacities are seen throughout both lungs, which are more prominent on the right. Chronic elevation of the left hemidiaphragm is seen with atel ectasis of the adjacent left lung base. Trace right pleural effusion. No left-sided pleural effusion or pneumothorax. Central and peripheral airways are patent and normal in caliber. Mediastinum: Heart size is normal. Trace pericardial effusion. There is rightward displacement of t he heart due to the elevated left hemidiaphragm. Moderate coronary calcifications. No mediastinal ashlee nopathy by size criteria. Thoracic aorta and central pulmonary arteries are normal in size. Mild to moderate aortic atherosclerotic calcifications. Esophagus is normal in caliber. No hiatal hernia. Bones and chest wall: No suspicious bony lesions. No vertebral body compression fractures. Degenera tive changes are seen in spine. No axillary or supraclavicular adenopathy by size criteria. The thyr oid is normal in size. Abdomen: The visualized portions of the colon are mildly distended and air-filled. Visualized upper abdominal solid organs and bowel loops otherwise appear normal in the absence of contrast. IMPRESSION: 1.Bilateral airspace opacities are suspicious for bilateral pneumonia. Trace right pleural effusion. 2.Chronically elevated left hemidiaphragm with atelectasis of the left lung base. There is resulting rightward displacement of the heart and lower mediastinal structures. 3.Mildly distended air-filled loops of large bowel in the upper abdomen are nonspecific and may be ph ysiologic. Reviewed by: Bartolo Perez MD on 02/23/2022 9:48 AM PDT Approved by: Bartolo Perez MD on 02/23/2022 9:48 AM PDT Station ID: [id number]
[2022-02-23] MEDS: LOSARTAN 50 MG TABLET PO SCH (10:51)
[2022-02-23] MEDS: guaiFENesin 600 MG TABLET PO SCH ×2 (10:53→21:23)
[2022-02-23] MEDS: SACCHAROMYCES BOULARDII 250 MG CAPSULE PO SCH ×2 (10:54→17:14)
[2022-02-23] MEDS: METOPROLOL TARTRATE 25 MG TABLET PO SCH ×2 (10:57→21:23)
[2022-02-23] MEDS: cefTRIAXone 2 GM in SODIUM CHLORIDE 0.9% MINIBAG 100 ML IV SCH (11:07)
[2022-02-23] MEDS: PSYLLIUM PACKET PO SCH (12:51)
[2022-02-23] MEDS: AZITHROMYCIN INJ 500 MG in SODIUM CHLORIDE 0.9% 250 ML IV SCH (12:51)
[2022-02-23] MEDS: MULTIVITAMIN W/MINERALS TABLET PO SCH (12:55)
[2022-02-23] MEDS ORDERED: ATORVASTATIN 40 MG TABLET PO STA (12:55)
[2022-02-23] MEDS ORDERED: ENOXAPARIN 40 MG/0.4 ML SYRINGE SUBQ ONE (13:00)
[2022-02-23] MEDS: NITROGLYCERIN 2% PASTE TOP SCH ×2 (13:35→21:21)
--- NOTE | 2022-02-23 13:46 | PROVIDER PROGRESS NOTE ---
Assessment/Plan - Problem List (1) Flash pulmonary edema Assessment/Plan: This morning at about 0800, the patient felt "uncomfortable", BP was 190, then is few minutes he complained of severe SOB and a pressure feeling in the R lower chest and RUQ. I was called to see him at this time. He said this was how the SOB hit him the night before admission, at home, when he called an ambulance. (In the ER they thought he was in a COPD exacerbation, put him briefly on BIPAP, but he improved in several hours and was down to room air and not wheezing). My exam during this event showed R sided rales, and his heart sounds are all in the R chest. STAT EKG was done and showed MAT, rate 113, horizontal ST depressions in V3-V6. A STAT CXR was done and shows his cardiac silhouette is in his R chest, and he had pulm edema. He received STAT iv Morphine and had improvement in <30 min. Beta-ousmane given, Lovenox will be increased to twice daily and Nitropaste started. IV fluids stopped. Lasix iv daily will be started, not bid due to KI. Telemetry started. Troponins and BNP ordered. I questioned the patient about ever having any cardiac work-up, especially preop for his carotid endarterectomy done in 2019, and he cannot remember any whatsoever, neither can the , at bedside. Plan will be for transfer for Cardiology management at a facility with higher level of care. This was discussed with pt, and daughter (who are at bedside). (2) Acute non-ST elevation myocardial infarction (NSTEMI) Assessment/Plan: His STAT EKG shows changes consistent with anterior ischemia versus NSTEMI. Troponins from today are 36>> 79 With a.m. resp distress, he received 4 baby aspirin empirically to chew, got his morning Metoprolol, a STAT dose of Lipitor, and Lovenox has been increased to 1 mg/kg twice daily. Continue with his daily beta-ousmane. Start NTP Start telemetry Follow troponins til see peak. Echocardiography service is not available here for the next 4-days, to assess his LVEF and wall motion. I questioned the patient about ever having any cardiac work-up, especially preop for his carotid endarterectomy done in 2019, and he cannot remember any whatso ever, neither can the , at bedside. If he has another event of flash pulm edema, will transfer hin ti the ICU for a NTG drip and possibky a Heparin drip and for closer monitoring. Will plan a transfer to higher level of care facilty. I explained the above and the plan to pt, and daughter, who are at bedside. I have called [facility], where he goes for his carotid management after [facility], and he was put on the waiting list. I called [facility] and they are closed for Cardiology cases. I called [facility] and gave details to the stiff leg operator. (3) Right sided heart Assessment/Plan: I personally viewed his stat bedside chest x-ray done today and it showed his entire cardiac silhouette in the right chest. All his HEART SOUNDS ARE AUDIBLE IN THE RIGHT CHEST. The etiology appears to be a large gastric bubble and L hemidiaphragm elevation with severe encroachment into the L chest. The admission chest x-ray did not mention dextrocardia. I reviewed his other reports from chest x-rays done here in 2020, 2019, 2016 and none mentioned dextrocardia. I reviewed the actual images of chest x-rays and they all show that his heart is in his right chest. I question the patient if he had any known congenital heart disease and he said no, this was confirmed by the at the bedside. He was excepted into the [facility] and thinks he must of had a normal cardiac exam that. I questioned the patient about ever having any cardiac work-up, especially preop for his carotid endarterectomy done in 2019, and he cannot remember any whatsoever, neither can the , at bedside. A STAT CT chest was done, to assess for pneumothorax or dextrocardia. The results show: No pneumothorax, bilateral airspace opacities suspicious for bilateral pneumonia, chronically elevated left hemidiaphragm, resulting in rightward displacement of the heart and lower mediastinal structures. (4) Hypertension Qualifiers: Hypertension type: essential hypertension Assessment/Plan: Blood pressure during his acute respiratory distress was as high as 190. Heart rate was 119 and MAT He will now be getting Lasix and Nitropaste. Continue his beta-ousmane and losartan (5) Acute kidney injury superimposed on chronic kidney disease Assessment/Plan: He presented with a creatinine of 1.8, it is improved to 1.5 after 1 day of IV fluids. His baseline creatinine is 1.3 however. The IV fluids had to be stopped because of the pulmonary edema today. Avoid nephrotoxins. Follow BMP daily. (6) CAP (community acquired pneumonia) Conclusion/Plan: As per CXR on admission. We ordered sputum for culture, but he makes no spt He is on empiric IV ceftriaxone and Zithromax. Will also give probiotic Qualifiers: Laterality: right Lung location: upper lobe of lung Qualified Code(s): J18.9 - Pneumonia, unspecified organism (7) COPD exacerbation Conclusion/Plan: He is on nebulizers scheduled and as needed, IV steroids and inhaled steroids, Mucinex for pulmonary toilet and supplemental oxygen if needed to keep sats > 88%. (8) DARWIN on CPAP Conclusion/Plan: He has his home CPAP device to be used here. If he should require oxygen bled into the CPAP which would be a BiPAP he would need to go to the ICU (9) PVD (peripheral vascular disease) Conclusion/Plan: Patient describes that he has had L carotid endarterectomy, done in 2019 and has his vessels followed by a vascular surgeon at [facility] every year. Will continue with his aspirin and statin and usual blood pressure control meds (10) Acute respiratory failure with hypoxia Conclusion/Plan: Resolved. He has sats of 93-96% on room air. Despite the ED work-up showing a pneumonia as the presumed cause and a COPD exacerbation, he denied a cough, had no exposure to people that are ill. He got better after just a short time on BiPAP in the ED and O2 was titrated down. This is unexpectedly very rapid improvement for somebody with COPD and pneumonia. His symptoms also came on suddenly, and overall are more consistent with flash pulmonary edema, which recurred today. - Current Meds Current Meds: Current Medications Generic Name Dose Route Start Last Admin Trade Name Freq PRN Reason Stop Dose Admin Albuterol/Ipratropium 3 ml 02/22/22 16:02 02/23/22 07:37 Ipratropium/Albuterol 3 Ml Neb INH 3 ml RTQ4H PRN Administration Wheezing Albuterol/Ipratropium 3 ml 02/22/22 19:00 02/23/22 11:37 Ipratropium/Albuterol 3 Ml Neb INH 3 ml RTQID LANNY Administration Budesonide 0.5 mg 02/22/22 19:00 02/23/22 07:37 Budesonide 0.5 Mg/2 Ml Neb INH 0.5 mg RTBID LANNY Administration Guaifenesin 600 mg 02/22/22 21:00 02/23/22 10:53 Guaifenesin 600 Mg Tablet PO 600 mg BID LANNY Administration Azithromycin 500 mg/ Sodium 250 mls @ 250 mls/hr 02/23/22 09:00 02/23/22 12:51 Chloride IV 02/25/22 00:01 250 mls/hr DAILY LANNY Administration Ceftriaxone Sodium 2 gm/ 100 mls @ 200 mls/hr 02/23/22 09:00 02/23/22 12:00 Sodium Chloride IV Infused DAILY LANNY Infusion Losartan Potassium 50 mg 02/23/22 09:00 02/23/22 10:51 Losartan 50 Mg Tablet PO 50 mg DAILY LANNY Administration Methylprednisolone 40 mg 02/22/22 22:00 02/23/22 06:28 Methylprednisolone Succinate 40 Mg/Ml Vial IVP 40 mg TID LANNY Administration Metoprolol Tartrate 12.5 mg 02/22/22 21:00 02/23/22 10:57 Metoprolol Tartrate 25 Mg Tablet PO 12.5 mg BID LANNY Administration Multivitamins/Minerals 1 tab 02/23/22 12:00 02/23/22 12:55 Multivitamin W/Minerals Tablet PO Not Given QDLUNCH LANNY Nitroglycerin 0.5 inch 02/23/22 13:00 02/23/22 13:35 Nitroglycerin 2% Paste TOP 0.5 inch Q8H LANNY Administration Psyllium Hydrophilic Mucilloid 1 packet 02/23/22 09:00 02/23/22 12:51 Psyllium Packet PO Not Given DAILY LANNY Saccharomyces Boulardii 250 mg 02/22/22 17:00 02/23/22 10:54 Saccharomyces Boulardii 250 Mg Capsule PO 250 mg BIDWM LANNY Administration Sodium Chloride 10 ml 02/22/22 15:57 02/23/22 08:35 Sodium Chloride Flush 0.9% 10 Ml Syringe IVP 10 ml PRN PRN Administration NEEDED PER PROVIDER ORDERS Sodium Chloride 10 ml 02/22/22 17:00 02/23/22 12:54 Sodium Chloride Flush 0.9% 10 Ml Syringe IVP Not Given 0100,0900,1700 LANNY - Lab Result Fish Bone Diagrams: 02/23/22 05:15 02/23/22 05:15 - EKG Results EKG Interpreted Independently: Yes EKG Comparison: Changed from prior EKG EKG Findings: Multifocal atrial tach, rate 103, ST depressions of 3 mm with T wave inversions in leads V3 through V5, T wave inversions laterally in 1, 2, aVL, and V6. All these changes are new since EKG from 02/22/2022. - Diagnostic Imaging Results Diagnostic Imaging Results: Final report reviewed - Additional Planning My Orders: My Active Orders 02/22/22 15:57 Activity Orders [RC] Q2HR Home CPAP/BiPAP/NPPV [RC] .ONCE IO [RC] IOSHIFT Incentive Spirometry - RT [RC] .TID Initiate Bowel Care Protocol [RC] .protocol Initiate Bronchodialator Neetu [RC] .PROTOCOL Initiate Line Care Protocol [RC] .protocol Initiate Line Care Protocol [RC] QSHIFT Initiate Lung Inflation Protoc [RC] .PROTOCOL Initiate Personal Care Protoco [RC] .protocol Initiate Secretion Clearance P [RC] .PROTOCOL Oxygen Therapy [RC] .PRN Vital Signs [RC] Q4HR Acetaminophen [Tylenol] 650 mg PO Q4HR PRN Ondansetron Inj [Zofran Inj] 4 mg IVP Q6HR PRN Sodium Chloride Flush 0.9% [Normal Saline Flush 0.9%] 10 ml IVP PRN PRN Code Status [OTHERS] Routine Condition of Patient [OTHERS] Routine DVT Prophylaxis [OTHERS] Routine 02/22/22 16:00 Daily Weight [RC] 0600 IV Insert [RC] .ONCE 02/22/22 16:01 SCDs [RC] QSHIFT 02/22/22 16:02 Ipratropium/Albuterol [Duoneb] 3 ml INH RTQ4H PRN 02/22/22 17:00 Saccharomyces Boulardii [Florastor] 250 mg PO BIDWM Sodium Chloride Flush 0.9% [Normal Saline Flush 0.9%] 10 ml IVP 0100,0900,1700 02/22/22 19:00 Budesonide [Pulmicort] 0.5 mg INH RTBID Ipratropium/Albuterol [Duoneb] 3 ml INH RTQID 02/22/22 20:21 Nebulizer [Nebulizer/MDI Tx.] [RC] .QID 02/22/22 21:00 Metoprolol Tartrate [Lopressor] 12.5 mg PO BID guaiFENesin [Mucinex] 600 mg PO BID 02/22/22 22:00 methylPREDNISolone SUCCINATE [SOLU-Medrol (40MG VIAL)] 40 mg IVP TID 02/23/22 07:40 Telemetry- [RC] Q4HR 02/23/22 09:00 Azithromycin Inj [Zithromax Inj] 500 mg Sodium Chloride 0.9% [Normal Saline 0.9%] 250 ml IV DAILY Losartan [Cozaar] 50 mg PO DAILY Psyllium [Metamucil] 1 packet PO DAILY cefTRIAXone [Rocephin] 2 gm Sodium Chloride 0.9% Minibag [Normal Saline 0.9% Minibag] 100 ml IV DAILY 02/23/22 10:11 CUL, RESPIRATORY [RM] Stat 02/23/22 Lunch DIET [Low Sodium Diet] [DIET] 02/23/22 12:00 Multivitamin W/Minerals [Theragran M] 1 tab PO QDLUNCH 02/23/22 13:00 Nitroglycerin 2% Paste (Pkt) [Nitro-Bid (Pkt)] 0.5 inch TOP Q8H 02/23/22 13:33 FUROSEMIDE INJ 20mg VIAL [LASIX INJ 20mg VIAL] 20 mg IVP DAILY 02/23/22 14:00 TROPONIN I HIGH SENSITIVITY [IAI] Timed 02/23/22 21:00 Atorvastatin [Lipitor] 40 mg PO QPM Enoxaparin [Lovenox] 80 mg SUBQ BID 02/24/22 05:00 BMP - BASIC METABOLIC PANEL [CHEM] DAILYLAB BNP - B-NATRIURETIC PEPTIDE [IAI] DAILYLAB CBC - COMP BLD CT W/AUTO DIFF [HEME] DAILYLAB LIPID Panel [CHEM] DAILYLAB TROPONIN I HIGH SENSITIVITY [IAI] DAILYLAB 02/25/22 05:00 BMP - BASIC METABOLIC PANEL [CHEM] DAILYLAB CBC - COMP BLD CT W/AUTO DIFF [HEME] DAILYLAB Additional Planning Notes: CRITCAL CARE TIME SPENT: 60 min (STAT bedside eval, CXR review, order cardiac meds, re-assess patient, discuss plan with pt and family members at bedside, calls to facilities for transfer). Subjective - Subjective Patient Reports: Shortness of Breath (He is in severe resp distress) Objective Vital Signs: Vital Signs - 24 hr 02/22/22 02/22/22 02/22/22 14:30 14:39 15:00 Temperature 36.6 C Heart Rate 84 88 98 Heart Rate [ Brachial] Respiratory 22 24 19 Rate Blood Pressure 143/63 H 144/89 H Blood Pressure [Right Brachial artery] Blood Pressure [Right Radial artery] O2 Saturation 99 97 02/22/22 02/22/22 02/22/22 15:30 16:00 16:40 Temperature 37.1 C Heart Rate 87 97 Heart Rate [ 98 Brachial] Respiratory 21 18 24 Rate Blood Pressure 145/62 H 140/63 H Blood Pressure 175/70 H [Right Brachial artery] Blood Pressure [Right Radial artery] O2 Saturation 95 97 98 02/22/22 02/22/22 02/23/22 20:21 20:24 01:53 Temperature 37.3 C 36.6 C Heart Rate 90 Heart Rate [ 91 75 Brachial] Respiratory 20 20 18 Rate Blood Pressure Blood Pressure 157/64 H 153/85 H [Right Brachial artery] Blood Pressure [Right Radial artery] O2 Saturation 96 99 02/23/22 02/23/22 02/23/22 05:40 07:15 08:40 Temperature 36.5 C Heart Rate 115 H Heart Rate [ 80 93 Brachial] Respiratory 22 22 Rate Blood Pressure Blood Pressure 177/86 H [Right Brachial artery] Blood Pressure 174/73 H [Right Radial artery] O2 Saturation 98 02/23/22 02/23/22 02/23/22 08:50 08:58 10:15 Temperature 36.6 C Heart Rate 101 H Heart Rate [ 105 H 113 H Brachial] Respiratory 23 24 24 Rate Blood Pressure Blood Pressure 181/82 H 189/83 H [Right Brachial artery] Blood Pressure [Right Radial artery] O2 Saturation 94 94 93 02/23/22 02/23/22 02/23/22 10:57 11:36 11:37 Temperature 36.7 C Heart Rate Heart Rate [ 91 Brachial] Respiratory 20 16 Rate Blood Pressure 192/87 H Blood Pressure 166/70 H [Right Brachial artery] Blood Pressure [Right Radial artery] O2 Saturation 95 Oxygen O2 Source Room air Oxygen Flow Rate 2 I&O (Last 24 Hrs): Intake and Output Totals x24h 02/21/22 02/22/22 02/23/22 23:59 23:59 23:59 Intake Total 570 1870.000 Output Total 300 200 Balance 270 1670.000 General: Severe distress HEENT: Mucous membr. moist/pink Neck: Supple Neuro: Alert, Non Focal Cardiovascular: Other (Tachy, ALL HEART SOUNDS ARE IN R CHEST, no murmur) Respiratory: Rales Abdomen: Normal bowel sounds, Soft, No tenderness Extremities: No clubbing, No edema Skin: No rashes - Results Results: Laboratory Results WBC 21.5 x10^3/uL (4.8-10.8) H 02/23/22 05:15 RBC 3.38 10^6/uL (4.70-6.10) L 02/23/22 05:15 Hgb 9.9 g/dL (14.0-18.0) L 02/23/22 05:15 Hct 29.9 % (42.0-52.0) L 02/23/22 05:15 MCV 88.5 fL (80.0-94.0) 02/23/22 05:15 MCH 29.3 pg (27.0-31.0) 02/23/22 05:15 MCHC 33.1 g/dL (32.0-36.0) 02/23/22 05:15 RDW 14.1 % (12.0-15.0) 02/23/22 05:15 Plt Count 192 10^3/uL (130-450) 02/23/22 05:15 MPV 9.7 fL (7.4-11.4) 02/23/22 05:15 Neut # (Auto) Not Reportable 02/23/22 05:15 Lymph # (Auto) Not Reportable 02/23/22 05:15 [place] # (Auto) Not Reportable 02/23/22 05:15 Eos # (Auto) Not Reportable 02/23/22 05:15 Baso # (Auto) Not Reportable 02/23/22 05:15 Absolute Nucleated RBC Not Reportable 02/23/22 05:15 Total Counted 100 02/23/22 05:15 Band Neuts % (Manual) 1 % (0-10) 02/23/22 05:15 Abnorm Lymph % (Manual) 0 % 02/23/22 05:15 Nucleated RBC % Not Reportable 02/23/22 05:15 Neutrophils # (Manual) 20.9 10^3/uL (1.5-6.6) H 02/23/22 05:15 Lymphocytes # (Manual) 0.0 10^3/uL (1.5-3.5) L 02/23/22 05:15 Monocytes # (Manual) 0.6 10^3/uL (0.0-1.0) 02/23/22 05:15 Eosinophils # (Manual) 0.0 10^3/uL (0-0.7) 02/23/22 05:15 Basophils # (Manual) 0.0 10^3/uL (0-0.1) 02/23/22 05:15 Differential Comment MANUAL DIFFERENTIAL 02/23/22 05:15 Platelet Estimate NORMAL (130-450,000) (NORMAL) 02/23/22 05:15 RBC Morph Micro Appear NORMAL APPEARANCE (NORMAL) 02/23/22 05:15 Sodium 139 mmol/L (135-145) 02/23/22 05:15 Potassium 4.4 mmol/L (3.5-5.0) 02/23/22 05:15 Chloride 106 mmol/L (101-111) 02/23/22 05:15 Carbon Dioxide 25 mmol/L (21-32) 02/23/22 05:15 Anion Gap 8.0 (6-13) 02/23/22 05:15 BUN 48 mg/dL (6-20) H 02/23/22 05:15 Creatinine 1.5 mg/dL (0.6-1.2) H 02/23/22 05:15 Estimated GFR (MDRD) 44 (>89) L 02/23/22 05:15 Glucose 144 mg/dL (70-100) H 02/23/22 05:15 Lactic Acid 1.4 mmol/L (0.5-2.2) 02/22/22 05:21 Calcium 8.9 mg/dL (8.5-10.3) 02/23/22 05:15 Phosphorus 3.6 mg/dL (2.5-4.6) 02/23/22 05:15 Magnesium 2.2 mg/dL (1.7-2.8) 02/23/22 05:15 Total Bilirubin 0.6 mg/dL (0.2-1.0) 02/22/22 05:21 AST 25 IU/L (10-42) 02/22/22 05:21 ALT 20 IU/L (10-60) 02/22/22 05:21 Alkaline Phosphatase 50 IU/L (42-121) 02/22/22 05:21 Troponin I High Sens 79.2 ng/L (2.3-19.7) H* 02/23/22 10:18 B-Natriuretic Peptide 406 pg/mL (5-100) H 02/23/22 08:04 Total Protein 6.9 g/dL (6.7-8.2) 02/22/22 05:21 Albumin 4.0 g/dL (3.2-5.5) 02/22/22 05:21 Globulin 2.9 g/dL (2.1-4.2) 02/22/22 05:21 Albumin/Globulin Ratio 1.4 (1.0-2.2) 02/22/22 05:21 Lipase 33 U/L (22-51) 02/22/22 05:21 Nasal Adenovirus (PCR) NOT DETECTED 02/22/22 05:48 Nasal B. parapertussis DNA (PCR) NOT DETECTED 02/22/22 05:48 Nasal Coronavir 229E PCR NOT DETECTED 02/22/22 05:48 Nasal Coronavir HKU1 PCR NOT DETECTED 02/22/22 05:48 Nasal Coronavir NL63 PCR NOT DETECTED 02/22/22 05:48 Nasal Coronavir OC43 PCR NOT DETECTED 02/22/22 05:48 Nasal Enterovir/Rhinovir PCR NOT DETECTED 02/22/22 05:48 Nasal Influenza B PCR NOT DETECTED 02/22/22 05:48 Nasal Influenza A PCR NOT DETECTED 02/22/22 05:48 Nasal Parainfluen 1 PCR NOT DETECTED 02/22/22 05:48 Nasal Parainfluen 2 PCR NOT DETECTED 02/22/22 05:48 Nasal Parainfluen 3 PCR NOT DETECTED 02/22/22 05:48 Nasal Parainfluen 4 PCR NOT DETECTED 02/22/22 05:48 Nasal RSV (PCR) NOT DETECTED 02/22/22 05:48 Nasal B.pertussis DNA PCR NOT DETECTED 02/22/22 05:48 Nasal C.pneumoniae (PCR) NOT DETECTED 02/22/22 05:48 Bryce Human Metapneumo PCR NOT DETECTED 02/22/22 05:48 Nasal M.pneumoniae (PCR) NOT DETECTED 02/22/22 05:48 Nasal SARS-CoV-2 (PCR) NOT DETECTED 02/22/22 05:48 - Procedures Procedures: Procedures CATARAC PHACOEMULS/ASPIR (05/26/14) INSERT LENS AT CATAR EXT (05/26/14)
[2022-02-23] MEDS: FUROSEMIDE 20 MG/2 ML VIAL IVP SCH (14:28)
--- NOTE | 2022-02-23 14:38 | PHARMACY PROGRESS NOTE ---
- Best Possible Medication History Admit Date and Time: 02/22/22 1557 Processed by: Pharmacy Medication History completed: Yes Patient Interview: Completed Secondary Source(s): Insurance records As the person ultimately responsible for medication therapy, providers are able to order a medication from an existing home medication list in [facility] via the "Reconcile Routine" prior to Confirmation of that medication by integrated logistics support manager. Such practice is discouraged except when the physician, in their clinical judgment, deems that a medical need exists for a medication without regard to previous use.
[2022-02-23] MEDS ORDERED: hydrALAZINE INJ 20 MG/ML VIAL IVP ONE (16:27)
[2022-02-23] MEDS: ENOXAPARIN 80 MG/0.8 ML SYRINGE SUBQ SCH (21:23)
[2022-02-23] MEDS: ATORVASTATIN 40 MG TABLET PO SCH (21:23)
[2022-02-24] MEDS: hydrALAZINE INJ 20 MG/ML VIAL IVP PRN ×3 (02:04→13:06)
[2022-02-24] MEDS: SODIUM CHLORIDE FLUSH 0.9% 10 ML SYRINGE IVP SCH ×3 (02:05→16:51)
[2022-02-24 05:20] LABS: BASOPHILS % (AUTO) 0.1 %; HCT - HEMATOCRIT 32.3 % (42.0-52.0); HGB - HEMOGLOBIN 10.9 g/dL (14.0-18.0); LYMPHOCYTES % (AUTO) 2.1 %; MEAN CORPUSCULAR HEMOGLOBIN 29.3 pg (27.0-31.0); MEAN CORPUSCULAR HGB CONC 33.7 g/dL (32.0-36.0); MEAN CORPUSCULAR VOLUME 86.8 fL (80.0-94.0); MEAN PLATELET VOLUME 9.9 fL (7.4-11.4); MONOCYTES % (AUTO) 3.3 %; NEUTROPHILS % (AUTO) 93.4 %; PLT - PLATELET COUNT 234 10^3/uL (130-450); RED BLOOD COUNT 3.72 10^6/uL (4.70-6.10); RED CELL DISTRIBUTION WIDTH 14.4 % (12.0-15.0); WHITE BLOOD COUNT 24.8 x10^3/uL (4.8-10.8)
[2022-02-24 05:27] LABS: CALCIUM 9.4 mg/dL (8.5-10.3); CREATININE 1.5 mg/dL (0.6-1.2)
[2022-02-24 05:30] LABS: ABNORMAL LYMPHS % (MANUAL) 0 %
[2022-02-24 05:36] LABS: CHOL/HDL RATIO 1.8 (<5.0); CHOLESTEROL 148 mg/dL; HDL CHOLESTEROL 83 mg/dL; LDL CHOLESTEROL,CALCULATED 56 mg/dL; LDL/HDL RATIO 0.7 (<3.6); TRIGLYCERIDES 47 mg/dL; VLDL CHOLESTEROL 9 mg/dL
[2022-02-24] MEDS: NITROGLYCERIN 2% PASTE TOP SCH ×3 (05:43→20:30)
[2022-02-24] MEDS: IPRATROPIUM/ALBUTEROL 3 ML NEB INH SCH ×4 (05:44→16:47)
[2022-02-24] MEDS: BUDESONIDE 0.5 MG/2 ML NEB INH SCH ×2 (05:44→16:47)
[2022-02-24] MEDS: methylPREDNISolone SUCCINATE 40 MG/ML VIAL IVP SCH ×3 (05:45→20:30)
[2022-02-24] MEDS ORDERED: FUROSEMIDE 40 MG/4 ML VIAL IVP STA (05:56)
[2022-02-24 06:58] LABS: BAND NEUTROPHILS % (MANUAL) 1 %; LYMPHOCYTES # (MANUAL) 0.2 10^3/uL (1.5-3.5); LYMPHOCYTES % (MANUAL) 1 %; MONOCYTES # (MANUAL) 1.5 10^3/uL (0.0-1.0); NEUTROPHILS # (MANUAL) 23.1 10^3/uL (1.5-6.6)
[2022-02-24 06:59] LABS: DIFFERENTIAL COMMENT MANUAL DIFFERENTIAL; PLATELET ESTIMATE, MANUAL NORMAL (130-450,000) (NORMAL); RBC MORPHOLOGY (MULTIPLE) NORMAL APPEARANCE (NORMAL)
[2022-02-24] MEDS ORDERED: NITROGLYCERIN SL 0.4 MG TABLET SL PRN (08:14)
[2022-02-24] MEDS: cefTRIAXone 2 GM in SODIUM CHLORIDE 0.9% MINIBAG 100 ML IV SCH (09:29)
[2022-02-24] MEDS: SACCHAROMYCES BOULARDII 250 MG CAPSULE PO SCH ×2 (09:35→17:23)
[2022-02-24] MEDS: METOPROLOL TARTRATE 25 MG TABLET PO SCH ×2 (09:35→20:30)
[2022-02-24] MEDS: guaiFENesin 600 MG TABLET PO SCH ×2 (09:36→20:30)
[2022-02-24] MEDS: LOSARTAN 50 MG TABLET PO SCH (09:36)
[2022-02-24] MEDS: FUROSEMIDE 20 MG/2 ML VIAL IVP SCH (09:37)
[2022-02-24] MEDS: AZITHROMYCIN INJ 500 MG in SODIUM CHLORIDE 0.9% 250 ML IV SCH (10:31)
[2022-02-24] MEDS: ENOXAPARIN 80 MG/0.8 ML SYRINGE SUBQ SCH ×2 (10:32→20:29)
[2022-02-24] MEDS: PSYLLIUM PACKET PO SCH ×2 (10:32→15:54)
--- NOTE | 2022-02-24 11:55 | XRAY Report ---
PROCEDURE: Chest 1 View X-Ray INDICATIONS: increased dyspnea TECHNIQUE: One view of the chest was acquired. COMPARISON: 02/23/2022 FINDINGS: Surgical changes and devices: None. Lungs and pleura: Patchy bilateral pulmonary infiltrates consistent with pneumonia. The left hemidiap hragm is significantly elevated. Gaseous distention of the splenic flexure noted underneath left trent diaphragm. Mediastinum: Mediastinal contours appear normal. Heart size is normal. Bones and chest wall: No suspicious bony lesions. Overlying soft tissues appear unremarkable. IMPRESSION: Patchy bilateral pulmonary infiltrates, consistent with pneumonia. Elevated left hemidiaphragm Note: Final report is concordant with preliminary interpretation provided by [employer] Reviewed by: Cy Anne MD on 02/24/2022 10:54 AM ANABELL Approved by: Cy Anne MD on 02/24/2022 10:54 AM [facility] Station ID: [id number]
[2022-02-24] MEDS: MULTIVITAMIN W/MINERALS TABLET PO SCH ×2 (12:23→13:26)
[2022-02-24] MEDS: SODIUM CHLORIDE FLUSH 0.9% 10 ML SYRINGE IVP PRN ×3 (13:07→20:42)
[2022-02-24] MEDS: metroNIDAZOLE 500 MG/100 ML 500 MG/100 ML BAG IV SCH (16:51)
--- NOTE | 2022-02-24 17:16 | PROVIDER PROGRESS NOTE ---
Hospitalist Cross-cover Note - Cross-Cover Note Cross-Cover Note: As a board-certified extension course counselor (credentialed to perform and interpret echoes here) I did a bedside Echo, The Echo showed: The patient's cardiac structures are behind the sternum and in the right chest. The aortic root is in the normal location and has normal caliber. Left atrium is mildly enlarged, the right atrium is probably normal in size The mitral valve has mild thickening and annular calcification. There is mild mitral regurgitation. The aortic valve is sclerotic but with good mobility, normal function by Doppler. The tricuspid valve appears structurally normal with trace tricuspid regurgitation. The pulmonic valve was never well seen to interrogate The most anterior ventricle appears to be the left ventricle and the most anterior wall, which is the LV inferior wall, is thinned and akinetic. All other medina have LVH and move normally. LVEF is estimated at 40%. No apical views were available to evaluate diastolic function if the LV by Doppler Right ventricle is positioned posterior to the LV, in the right chest. The RV is mildly enlarged, RV function is not well seen. No pericardial effusion seen. Imp: Dextrocardia Akinetic regional LV wall motion, probably of the inferior wall, LVEF 40% RV enlarged, cannot eval RV function. Mild mitral regurg, trace tricuspid regurg.
--- NOTE | 2022-02-24 17:18 | PROVIDER PROGRESS NOTE ---
Assessment/Plan - Problem List (1) Acute non-ST elevation myocardial infarction (NSTEMI) Assessment/Plan: During his episode of flash pulmonary edema yesterday morning, his STAT EKG showed changes consistent with NSTEMI (anterior ST depresions). Troponins were 36>> 79>> 575>> 2000>> 1001 this a.m. I performed his bedside Echo today (since we have no Echo service here for 3 more days) and this showed LV inferior wall thinning and akinesis, LVEF about 40%. His inferior LV wall is the most anterior in the R chest, the septum is posterior to that and the RV is posterior to that. He is on daily aspirin, Metoprolol, high dose Lipitor, Lovenox twice daily and NTP. At 05 30 this morning he had chest pressure. His blood pressure was elevated during this. Will add sublingual NTG prn for angina. He needs to be transferred for cardiac cath and coronary angiogram given his 2 episodes of flash pulmonary edema, the acute NSTEMI and his post-VA angina. The larger facilities that I contacted are all full, he is on the waiting list. If there is further and long-lasting angina, would plan to transfer to our ICU for an IV nitroglycerin drip (currently the ICU is full). (2) Dextrocardia Assessment/Plan: A STAT CT chest was done yesterday and it showed: "No pneumothorax, bilateral airspace opacities suspicious for bilateral pneumonia, chronically elevated left hemidiaphragm, resulting in rightward displacement of the heart and lower mediastinal structures". Today a bedside echo was done and shows that the patient has dextrocardia: His left ventricle is the most anterior ventricle in his right chest, the right ventricle is posterior to that in the right chest. It appears that the great vessels have the normal orientation. He does not think he has had this from , was never told he had a congenital heart defect, and was able to be accepted into the [facility]. Because he has a elevated left hemidiaphragm and a large gas bubble or air in the colon pushing up the diaphragm significantly up into the left chest, this may have displaced the heart to the right, over time. He needs transfer for coronary angiogram because of the NSTEMI and this will need to be evaluated with an Echo or [facility] and cardiac cath. (3) Flash pulmonary edema Assessment/Plan: Yesterday morning at about 0800, the patient felt "uncomfortable", BP was 190, then he complained of severe SOB and a pressure feeling in the R lower chest and RUQ. I was called to see him at this time. He said this was how the SOB hit him the night before admission, at home, when he called an ambulance. (In the ER they thought he was in a COPD exacerbation, put him briefly on BIPAP, but he improved in several hours and was down to room air and was already not wheezing). Therefore the presentation was Flash pulmonary edema My exam during his Inpt event yesterday showed audible rales, and his heart sounds are all in the R chest. A STAT CXR was done and showed he had pulm edema and his cardiac silhouette is in his R chest He received STAT iv Morphine, IV fluids were stopped. Lasix iv daily to continue Telemetry to continue I questioned the patient about ever having any cardiac work-up, especially preop for his carotid endarterectomy done in 2019, and he cannot remember any whatsoever, neither can the or family at bedside. Plan will be for transfer for Cardiology management at a facility with higher level of care. This was discussed with pt, and daughter, son and [id number]. (4) Hypertension Qualifiers: Hypertension type: essential hypertension Assessment/Plan: Blood pressure duringa cute respiratory distress is as high as 190. Lasix and Nitropaste have been added Continue his beta-ousmane and losartan iv Hydralazine prn will also be ordered (5) Acute kidney injury superimposed on chronic kidney disease Assessment/Plan: He presented with a creatinine of 1.8, which has improved The IV fluids had to be stopped because of the pulmonary edema Avoid nephrotoxins. Follow BMP daily. (6) Aspiration pneumonia Conclusion/Plan: His CXR and CT chest were read as having bilateral infiltrates. His spt is (+), results pending. He was on empiric IV ceftriaxone and Zithromax plus a probiotic. Today he was witnessed to aspirate thin liquids, twice and went into his coughing spell with air hunger and felt almost like he did with the flash pulmonary edema. He underwent a bedside swallow eval by nursing and failed it. We will stop his Zithromax) he has finished the course), add Flagyl for anaerobic coverage and continue ceftriaxone. Will order thickened liquids for his diet (7) COPD exacerbation Conclusion/Plan: He is on nebulizers scheduled and as needed, IV steroids and inhaled steroids, Mucinex for pulmonary toilet and supplemental oxygen if needed to keep sats > 88%. (8) DARWIN on CPAP Conclusion/Plan: He has his home CPAP device to be used here. If he should require oxygen bled into the CPAP which would be a BiPAP he would need to go to the ICU (9) PVD (peripheral vascular disease) Conclusion/Plan: Hx of L CEA. (10) Acute respiratory failure with hypoxia Conclusion/Plan: Resolved. He has sats of 93-96% on room air. Despite the ED work-up showing a pneumonia as the presumed cause and a COPD exacerbation, he got better after just a short time on BiPAP in the ED and O2 w as titrated down to room air in a day. This was unexpectedly very rapid improvement for somebody with COPD and pneumonia. His symptoms also came on suddenly, and overall are more consistent with flash pulmonary edema, which recurred the next day here (yesterday). - Current Meds Current Meds: Current Medications Generic Name Dose Route Start Last Admin Trade Name Freq PRN Reason Stop Dose Admin Acetaminophen 650 mg 02/22/22 15:57 02/24/22 12:25 Acetaminophen 325 Mg Tablet PO 650 mg Q4HR PRN Administration Pain 1 to 4, or Fever Albuterol/Ipratropium 3 ml 02/22/22 16:02 02/23/22 07:37 Ipratropium/Albuterol 3 Ml Neb INH 3 ml RTQ4H PRN Administration Wheezing Albuterol/Ipratropium 3 ml 02/22/22 19:00 02/24/22 16:47 Ipratropium/Albuterol 3 Ml Neb INH 3 ml RTQID LANNY Administration Atorvastatin Calcium 40 mg 02/23/22 21:00 02/23/22 21:23 Atorvastatin 40 Mg Tablet PO 40 mg QPM LANNY Administration Budesonide 0.5 mg 02/22/22 19:00 02/24/22 16:47 Budesonide 0.5 Mg/2 Ml Neb INH 0.5 mg RTBID LANNY Administration Enoxaparin Sodium 80 mg 02/23/22 21:00 02/24/22 10:32 Enoxaparin 80 Mg/0.8 Ml Syringe SUBQ 80 mg BID LANNY Administration Furosemide 20 mg 02/23/22 13:33 02/24/22 09:37 Furosemide 20 Mg/2 Ml Vial IVP Not Given DAILY LANNY Guaifenesin 600 mg 02/22/22 21:00 02/24/22 09:36 Guaifenesin 600 Mg Tablet PO 600 mg BID LANNY Administration Hydralazine HCl 10 mg 02/24/22 01:38 02/24/22 13:06 Hydralazine Inj 20 Mg/Ml Vial IVP 10 mg Q4H PRN Administration PER PHYSICIAN ORDER Ceftriaxone Sodium 2 gm/ 100 mls @ 200 mls/hr 02/23/22 09:00 02/24/22 10:00 Sodium Chloride IV Infused DAILY LANNY Infusion Metronidazole 500 mg in 100 mls @ 100 mls/hr 02/24/22 17:00 02/24/22 16:51 Flagyl 500 Mg/100 Ml IV 100 mls/hr Q8H LANNY Administration Losartan Potassium 50 mg 02/23/22 09:00 02/24/22 09:36 Losartan 50 Mg Tablet PO 50 mg DAILY LANNY Administration Methylprednisolone 40 mg 02/22/22 22:00 02/24/22 14:45 Methylprednisolone Succinate 40 Mg/Ml Vial IVP 40 mg TID LANNY Administration Metoprolol Tartrate 12.5 mg 02/22/22 21:00 02/24/22 09:35 Metoprolol Tartrate 25 Mg Tablet PO 12.5 mg BID LANNY Administration Multivitamins/Minerals 1 tab 02/23/22 12:00 02/24/22 13:26 Multivitamin W/Minerals Tablet PO Not Given QDLUNCH LANNY Nitroglycerin 0.5 inch 02/23/22 13:00 02/24/22 12:24 Nitroglycerin 2% Paste TOP 0.5 inch Q8H LANNY Administration Psyllium Hydrophilic Mucilloid 1 packet 02/23/22 09:00 02/24/22 15:54 Psyllium Packet PO Not Given DAILY LANNY Saccharomyces Boulardii 250 mg 02/22/22 17:00 02/24/22 09:35 Saccharomyces Boulardii 250 Mg Capsule PO 250 mg BIDWM LANNY Administration Sodium Chloride 10 ml 02/22/22 15:57 02/24/22 14:45 Sodium Chloride Flush 0.9% 10 Ml Syringe IVP 10 ml PRN PRN Administration NEEDED PER PROVIDER ORDERS Sodium Chloride 10 ml 02/22/22 17:00 02/24/22 16:51 Sodium Chloride Flush 0.9% 10 Ml Syringe IVP 10 ml 0100,0900,1700 LANNY Administration - Lab Result Fish Bone Diagrams: 02/24/22 05:10 02/24/22 05:10 - EKG Results EKG Interpreted Independently: Yes EKG Comparison: Changed from prior EKG EKG Findings: A stat EKG was done at 0530 while he was having chest pain today. The left- sided EKG showed: Sinus tachycardia, rate 107, PACs, Horizontal ST depressions in V2 through V6. A right sided EKG was also done. This showed sinus rhythm with PACs, rate 107, Poor R wave progression across the precordium, scooping ST segments in the inferior leads. - Additional Planning My Orders: My Active Orders 02/23/22 21:00 Atorvastatin [Lipitor] 40 mg PO QPM Enoxaparin [Lovenox] 80 mg SUBQ BID 02/24/22 Clinical Swallow Evaluation [ST] Routine 02/24/22 08:13 Miscellaenous Nursing Order [RC] ONCE 02/24/22 08:14 Nitroglycerin [Nitrostat] 0.4 mg SL Q5MIN PRN 02/24/22 Dinner DIET [Dysphagia - Soft and Bite Sized] [DIET] 02/24/22 17:00 metroNIDAZOLE 500 MG/100 ML [Flagyl 500 mg/100 ml] 500 mg in 100 ml IV Q8H 02/25/22 05:00 BMP - BASIC METABOLIC PANEL [CHEM] DAILYLAB CBC - COMP BLD CT W/AUTO DIFF [HEME] DAILYLAB 02/25/22 07:00 Pantoprazole [Protonix] 40 mg PO QDAC Subjective - Subjective Patient Reports: Shortness of Breath (SOB with cough after swallowing and felt anxious with air hunger again) Nursing Reports: Other (RN witnessed aspiration of thin liquis) Objective Vital Signs: Vital Signs - 24 hr 02/23/22 02/23/22 02/23/22 17:24 17:39 17:54 Temperature Heart Rate Heart Rate [ 107 H 95 94 Brachial] Heart Rate [ Monitoring electrodes] Respiratory Rate Blood Pressure Blood Pressure [Left Brachial artery] Blood Pressure 168/73 H 150/68 H 150/65 H [Right Brachial artery] O2 Saturation 07/15/22 07/15/22 07/15/22 19:15 20:18 21:23 Temperature 37.0 C Heart Rate 100 Heart Rate [ 109 H Brachial] Heart Rate [ Monitoring electrodes] Respiratory 16 20 Rate Blood Pressure 155/89 H Blood Pressure [Left Brachial artery] Blood Pressure 155/89 H [Right Brachial artery] O2 Saturation 92 02/23/22 02/24/22 02/24/22 23:39 01:43 02:04 Temperature 36.6 C 36.5 C Heart Rate Heart Rate [ Brachial] Heart Rate [ 95 92 Monitoring electrodes] Respiratory 21 24 Rate Blood Pressure 166/64 H Blood Pressure 159/76 H 182/79 H [Left Brachial artery] Blood Pressure [Right Brachial artery] O2 Saturation 96 96 02/24/22 02/24/22 02/24/22 02:05 02:15 02:30 Temperature Heart Rate Heart Rate [ Brachial] Heart Rate [ Monitoring electrodes] Respiratory Rate Blood Pressure Blood Pressure 151/54 H 138/58 H 137/54 H [Left Brachial artery] Blood Pressure [Right Brachial artery] O2 Saturation 02/24/22 02/24/22 02/24/22 02:34 02:45 03:00 Temperature Heart Rate Heart Rate [ Brachial] Heart Rate [ Monitoring electrodes] Respiratory Rate Blood Pressure 137/54 H Blood Pressure 150/58 H 164/91 H [Left Brachial artery] Blood Pressure [Right Brachial artery] O2 Saturation 02/24/22 02/24/22 02/24/22 05:06 05:45 05:52 Temperature 36.4 C L Heart Rate 108 H Heart Rate [ Brachial] Heart Rate [ 103 H Monitoring electrodes] Respiratory 20 26 H 32 H Rate Blood Pressure Blood Pressure 181/73 H [Left Brachial artery] Blood Pressure [Right Brachial artery] O2 Saturation 94 02/24/22 02/24/22 02/24/22 06:00 06:15 06:30 Temperature Heart Rate Heart Rate [ Brachial] Heart Rate [ Monitoring electrodes] Respiratory Rate Blood Pressure Blood Pressure 177/66 H 178/71 H 169/76 H [Left Brachial artery] Blood Pressure [Right Brachial artery] O2 Saturation 02/24/22 02/24/22 02/24/22 06:31 06:45 07:03 Temperature Heart Rate Heart Rate [ Brachial] Heart Rate [ Monitoring electrodes] Respiratory 22 Rate Blood Pressure 169/76 H Blood Pressure 162/67 H [Left Brachial artery] Blood Pressure [Right Brachial artery] O2 Saturation 02/24/22 02/24/22 02/24/22 07:17 09:27 09:35 Temperature 36.5 C Heart Rate Heart Rate [ 106 H Brachial] Heart Rate [ 102 H Monitoring electrodes] Respiratory 23 Rate Blood Pressure 155/63 H Blood Pressure 159/69 H 155/63 H [Left Brachial artery] Blood Pressure [Right Brachial artery] O2 Saturation 96 96 02/24/22 02/24/22 02/24/22 10:51 11:20 11:40 Temperature 36.5 C 36.6 C Heart Rate Heart Rate [ 94 Brachial] Heart Rate [ 93 94 86 Monitoring electrodes] Respiratory 20 20 Rate Blood Pressure Blood Pressure 161/73 H 179/80 H 161/74 H [Left Brachial artery] Blood Pressure [Right Brachial artery] O2 Saturation 97 96 96 02/24/22 02/24/22 02/24/22 12:00 12:15 12:45 Temperature Heart Rate Heart Rate [ Brachial] Heart Rate [ 87 88 96 Monitoring electrodes] Respiratory Rate Blood Pressure Blood Pressure 159/69 H 166/84 H 196/83 H [Left Brachial artery] Blood Pressure [Right Brachial artery] O2 Saturation 02/24/22 02/24/22 02/24/22 12:49 13:00 13:08 Temperature Heart Rate 95 Heart Rate [ Brachial] Heart Rate [ 100 96 Monitoring electrodes] Respiratory 24 Rate Blood Pressure Blood Pressure 171/75 H 166/66 H [Left Brachial artery] Blood Pressure [Right Brachial artery] O2 Saturation 02/24/22 02/24/22 02/24/22 13:10 13:15 13:20 Temperature Heart Rate Heart Rate [ Brachial] Heart Rate [ 98 95 105 H Monitoring electrodes] Respiratory Rate Blood Pressure Blood Pressure 148/75 H 150/60 H 146/60 H [Left Brachial artery] Blood Pressure [Right Brachial artery] O2 Saturation 02/24/22 02/24/22 02/24/22 14:14 14:42 16:48 Temperature Heart Rate 104 H Heart Rate [ Brachial] Heart Rate [ 107 H 102 H Monitoring electrodes] Respiratory 24 22 Rate Blood Pressure 155/66 H Blood Pressure 155/66 H 152/67 H [Left Brachial artery] Blood Pressure [Right Brachial artery] O2 Saturation 90 L 92 02/24/22 17:00 Temperature 36.5 C Heart Rate Heart Rate [ Brachial] Heart Rate [ 102 H Monitoring electrodes] Respiratory 24 Rate Blood Pressure Blood Pressure 156/57 H [Left Brachial artery] Blood Pressure [Right Brachial artery] O2 Saturation 93 Oxygen O2 Source Room air Oxygen Flow Rate 2 I&O (Last 24 Hrs): Intake and Output Totals x24h 02/22/22 02/23/22 02/24/22 23:59 23:59 23:59 Intake Total 570 2592.000 630 Output Total 300 900 600 Balance 270 1692.000 30 General: Alert, Oriented x3 HEENT: Mucous membr. moist/pink, Other (Voice is hoarse) Neuro: Alert, Other (Bilateral hand tremiore) Cardiovascular: Regular rate, Other (heart sounds are in R chest) Respiratory: Wheezes, Rales Abdomen: Normal bowel sounds, Soft Extremities: No clubbing, No edema - Results Results: Laboratory Results WBC 24.8 x10^3/uL (4.8-10.8) H 02/24/22 05:10 RBC 3.72 10^6/uL (4.70-6.10) L 02/24/22 05:10 Hgb 10.9 g/dL (14.0-18.0) L 02/24/22 05:10 Hct 32.3 % (42.0-52.0) L 02/24/22 05:10 MCV 86.8 fL (80.0-94.0) 02/24/22 05:10 MCH 29.3 pg (27.0-31.0) 02/24/22 05:10 MCHC 33.7 g/dL (32.0-36.0) 02/24/22 05:10 RDW 14.4 % (12.0-15.0) 02/24/22 05:10 Plt Count 234 10^3/uL (130-450) 02/24/22 05:10 MPV 9.9 fL (7.4-11.4) 02/24/22 05:10 Neut # (Auto) Not Reportable 02/24/22 05:10 Lymph # (Auto) Not Reportable 02/24/22 05:10 Randolph # (Auto) Not Reportable 02/24/22 05:10 Eos # (Auto) Not Reportable 02/24/22 05:10 Baso # (Auto) Not Reportable 02/24/22 05:10 Absolute Nucleated RBC Not Reportable 02/24/22 05:10 Total Counted 100 02/24/22 05:10 Band Neuts % (Manual) 1 % (0-10) 02/24/22 05:10 Abnorm Lymph % (Manual) 0 % 02/24/22 05:10 Nucleated RBC % Not Reportable 02/24/22 05:10 Neutrophils # (Manual) 23.1 10^3/uL (1.5-6.6) H 02/24/22 05:10 Lymphocytes # (Manual) 0.2 10^3/uL (1.5-3.5) L 02/24/22 05:10 Monocytes # (Manual) 1.5 10^3/uL (0.0-1.0) H 02/24/22 05:10 Eosinophils # (Manual) 0.0 10^3/uL (0-0.7) 02/24/22 05:10 Basophils # (Manual) 0.0 10^3/uL (0-0.1) 02/24/22 05:10 Differential Comment MANUAL DIFFERENTIAL 02/24/22 05:10 Platelet Estimate NORMAL (130-450,000) (NORMAL) 02/24/22 05:10 RBC Morph Micro Appear NORMAL APPEARANCE (NORMAL) 02/24/22 05:10 Sodium 140 mmol/L (135-145) 02/24/22 05:10 Potassium 4.0 mmol/L (3.5-5.0) 02/24/22 05:10 Chloride 105 mmol/L (101-111) 02/24/22 05:10 Carbon Dioxide 23 mmol/L (21-32) 02/24/22 05:10 Anion Gap 12.0 (6-13) 02/24/22 05:10 BUN 54 mg/dL (6-20) H 02/24/22 05:10 Creatinine 1.5 mg/dL (0.6-1.2) H 02/24/22 05:10 Estimated GFR (MDRD) 44 (>89) L 02/24/22 05:10 Glucose 131 mg/dL (70-100) H 02/24/22 05:10 Lactic Acid 1.4 mmol/L (0.5-2.2) 02/22/22 05:21 Calcium 9.4 mg/dL (8.5-10.3) 02/24/22 05:10 Phosphorus 3.6 mg/dL (2.5-4.6) 02/23/22 05:15 Magnesium 2.2 mg/dL (1.7-2.8) 02/23/22 05:15 Total Bilirubin 0.6 mg/dL (0.2-1.0) 02/22/22 05:21 AST 25 IU/L (10-42) 02/22/22 05:21 ALT 20 IU/L (10-60) 02/22/22 05:21 Alkaline Phosphatase 50 IU/L (42-121) 02/22/22 05:21 Troponin I High Sens 1040.2 ng/L (2.3-19.7) H* 02/24/22 11:07 B-Natriuretic Peptide 514 pg/mL (5-100) H 02/24/22 05:10 Total Protein 6.9 g/dL (6.7-8.2) 02/22/22 05:21 Albumin 4.0 g/dL (3.2-5.5) 02/22/22 05:21 Globulin 2.9 g/dL (2.1-4.2) 02/22/22 05:21 Albumin/Globulin Ratio 1.4 (1.0-2.2) 02/22/22 05:21 Triglycerides 47 mg/dL (-149) 02/24/22 05:10 Cholesterol 148 mg/dL (-199) 02/24/22 05:10 LDL Cholesterol, Calc 56 mg/dL (-129) 02/24/22 05:10 VLDL Cholesterol 9 mg/dL 02/24/22 05:10 HDL Cholesterol 83 mg/dL (60-) 02/24/22 05:10 LDL/HDL Ratio 0.7 (<3.6) 02/24/22 05:10 Cholesterol/HDL Ratio 1.8 (<5.0) 02/24/22 05:10 Lipase 33 U/L (22-51) 02/22/22 05:21 Nasal Adenovirus (PCR) NOT DETECTED 02/22/22 05:48 Nasal B. parapertussis DNA (PCR) NOT DETECTED 02/22/22 05:48 Nasal Coronavir 229E PCR NOT DETECTED 02/22/22 05:48 Nasal Coronavir HKU1 PCR NOT DETECTED 02/22/22 05:48 Nasal Coronavir NL63 PCR NOT DETECTED 02/22/22 05:48 Nasal Coronavir OC43 PCR NOT DETECTED 02/22/22 05:48 Nasal Enterovir/Rhinovir PCR NOT DETECTED 02/22/22 05:48 Nasal Influenza B PCR NOT DETECTED 02/22/22 05:48 Nasal Influenza A PCR NOT DETECTED 02/22/22 05:48 Nasal Parainfluen 1 PCR NOT DETECTED 02/22/22 05:48 Nasal Parainfluen 2 PCR NOT DETECTED 02/22/22 05:48 Nasal Parainfluen 3 PCR NOT DETECTED 02/22/22 05:48 Nasal Parainfluen 4 PCR NOT DETECTED 02/22/22 05:48 Nasal RSV (PCR) NOT DETECTED 02/22/22 05:48 Nasal B.pertussis DNA PCR NOT DETECTED 02/22/22 05:48 Nasal C.pneumoniae (PCR) NOT DETECTED 02/22/22 05:48 Bryce Human Metapneumo PCR NOT DETECTED 02/22/22 05:48 Nasal M.pneumoniae (PCR) NOT DETECTED 02/22/22 05:48 Nasal SARS-CoV-2 (PCR) NOT DETECTED 02/22/22 05:48 - Procedures Procedures: Procedures CATARAC PHACOEMULS/ASPIR (05/26/14) INSERT LENS AT CATAR EXT (05/26/14)
[2022-02-24] MEDS: ATORVASTATIN 40 MG TABLET PO SCH (20:30)
[2022-02-24] MEDS: IPRATROPIUM/ALBUTEROL 3 ML NEB INH PRN (22:06)
[2022-02-25] MEDS: SODIUM CHLORIDE FLUSH 0.9% 10 ML SYRINGE IVP SCH ×3 (00:36→16:09)
[2022-02-25] MEDS: metroNIDAZOLE 500 MG/100 ML 500 MG/100 ML BAG IV SCH ×3 (00:36→16:09)
[2022-02-25] MEDS: IPRATROPIUM/ALBUTEROL 3 ML NEB INH PRN ×2 (01:59→06:15)
[2022-02-25] MEDS: NITROGLYCERIN 2% PASTE TOP SCH (05:37)
[2022-02-25] MEDS: methylPREDNISolone SUCCINATE 40 MG/ML VIAL IVP SCH ×2 (05:38→13:53)
[2022-02-25] MEDS: SODIUM CHLORIDE FLUSH 0.9% 10 ML SYRINGE IVP PRN ×2 (05:43→13:54)
[2022-02-25 05:54] LABS: BASOPHILS % (AUTO) 0.1 %; HCT - HEMATOCRIT 29.6 % (42.0-52.0); HGB - HEMOGLOBIN 9.8 g/dL (14.0-18.0); LYMPHOCYTES # (AUTO) 0.4 10^3/uL (1.5-3.5); LYMPHOCYTES % (AUTO) 2.2 %; MEAN CORPUSCULAR HGB CONC 33.1 g/dL (32.0-36.0); MEAN CORPUSCULAR VOLUME 87.6 fL (80.0-94.0); MEAN PLATELET VOLUME 10.3 fL (7.4-11.4); MONOCYTES # (AUTO) 0.9 10^3/uL (0.0-1.0); MONOCYTES % (AUTO) 5.4 %; NEUTROPHILS # (AUTO) 14.7 10^3/uL (1.5-6.6); NEUTROPHILS % (AUTO) 91.1 %; PLT - PLATELET COUNT 233 10^3/uL (130-450); RED BLOOD COUNT 3.38 10^6/uL (4.70-6.10); RED CELL DISTRIBUTION WIDTH 14.6 % (12.0-15.0); WHITE BLOOD COUNT 16.1 x10^3/uL (4.8-10.8)
[2022-02-25] MEDS: FUROSEMIDE 20 MG/2 ML VIAL IVP SCH (06:02)
[2022-02-25 06:06] LABS: CREATININE 1.8 mg/dL (0.6-1.2); POTASSIUM 3.7 mmol/L (3.5-5.0)
[2022-02-25] MEDS: IPRATROPIUM/ALBUTEROL 3 ML NEB INH SCH ×4 (06:28→16:43)
[2022-02-25] MEDS: BUDESONIDE 0.5 MG/2 ML NEB INH SCH (06:28)
[2022-02-25] MEDS ORDERED: PANTOPRAZOLE 40 MG TABLET PO SCH (07:00)
[2022-02-25] MEDS: METOPROLOL TARTRATE 25 MG TABLET PO SCH (08:47)
[2022-02-25] MEDS: LOSARTAN 50 MG TABLET PO SCH (08:47)
[2022-02-25] MEDS: guaiFENesin 600 MG TABLET PO SCH (08:47)
[2022-02-25] MEDS: SACCHAROMYCES BOULARDII 250 MG CAPSULE PO SCH ×2 (08:47→17:04)
[2022-02-25] MEDS: ENOXAPARIN 80 MG/0.8 ML SYRINGE SUBQ SCH (08:56)
[2022-02-25] MEDS: cefTRIAXone 2 GM in SODIUM CHLORIDE 0.9% MINIBAG 100 ML IV SCH (08:56)
[2022-02-25] MEDS: PSYLLIUM PACKET PO SCH (08:57)
[2022-02-25] MEDS: MULTIVITAMIN W/MINERALS TABLET PO SCH (12:38)
[2022-02-25] MEDS ORDERED: NITROGLYCERIN 2% PASTE TOP SCH (13:00)
--- NOTE | 2022-02-25 16:37 | Discharge Plan ---
Discharge Plan Problem Reviewed?: Yes Disposition: 02 Transfer Acute Care Hosp Condition: Stable No Smoking: If you smoke, Please STOP! Call for help. Follow-up with: Sandra Buchanan MD [Primary Care Provider] -
--- NOTE | 2022-02-25 16:41 | DISCHARGE SUMMARY ---
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 He developed shortness of breath rapidly worsening at about 11 PM last night and called an ambulance. He was found to have tachypnea and desaturating to 86% on room air, felt panicky. He was given Solu-Medrol and nebulizer by EMS. In the ER he was still very panicky and tachypneic at 40 breaths/min and was immediately put on BiPAP for stabilization. Work-up showed a WBC of 13, normal lactic acid, BNP of 254, BUN/creatinine of 47/1.8. COVID test is negative. Chest x-ray showed right sided mid and upper lung infiltrates and left-sided atelectasis plus left hemidiaphragm elevation which is old. Because of no fever or significant sepsis labs, no blood cultures were done, per the ED provider. He was given Zithromax and Rocephin and put on supplemental oxygen, and was slowly able to be titrated down to 2 L/min by nasal cannula while in the ED awaiting a hospital bed to open. The ED provider reached out to the Hospitalist team for admission for this pt to manage a CAP and COPD exacerbation and acute respiratory failure with hypoxia. I reviewed his CODE status wishes with him at bedside and he wants to be a Full Code. - HOSPITAL COURSE Hospital Course: (1) Acute respiratory failure with hypoxia Despite the ED work-up showing a pneumonia and a COPD exacerbation as the presumed cause, he got better after just several hours on BiPAP in the ED and O2 was titrated down to room air. This was unexpectedly very rapid improvement for somebody with COPD and pneumonia. His symptoms at home had also come on suddenly, and overall were more consistent with flash pulmonary edema, which recurred the next day here (see #2). (2) Flash pulmonary edema On his 2nd morning at about 0800, the patient felt "uncomfortable", BP was 190, then he complained of severe SOB and a pressure feeling in the R lower chest and RUQ. I was called to see him at this time. He said this was how the SOB hit him the night before, at home, when he called an ambulance. A STAT CXR was done and showed he had pulm edema. Therefore the presentation was Flash pulmonary edema. He required STAT iv Morphine, IV fluids were stopped, he got Lasix iv daily. The patient claimed he had never had any cardiac work-up, even preop for his carotid endarterectomy which was done in 2019. Plan was then for transfer for Cardiology management at a facility with higher level of care, which took place only several days later when a bed became available at [facility]. (3) Acute non-ST elevation myocardial infarction (NSTEMI) When he complained of severe SOB on Day 2, he had a pressure feeling in the R lower chest and RUQ, and his STAT EKG showed new anterior ST depression changes consistent with NSTEMI. Troponins were 36>> 79>> 575>> 2000>> 1001. He received ASA, B-ousmane, statin, Lovenox b.i.d., NTP and sl NTG prn. I performed his bedside Echo (since we had no Echo service here for 3 more days), and this showed LV inferior wall thinning and akinesis, LVEF about 40%. He again had chest pressure the next day requiring treatment. He required transfer for cardiac cath and coronary angiogram given his 2 episodes of flash pulmonary edema, the acute NSTEMI and his post-MT angina. The larger facilities that I contacted were all full, and he was on waiting lists. (4) Dextrocardia When he had the witnessed flash pulm edema on Day 2, his STAT bedside CXR was reviewed by this Hospitalist and it was found to have dextrocardia. His admission chest Xray and old chest images had no description of dextrocardia, but when each old image was viewed, it was found to have the same abnormal appearance of the LV apex in his right chest. A STAT CT chest was then done, to assure no pneumothorax had caused this finding, and it showed: "No pneumothorax, bilateral airspace opacities suspicious for bilateral pneumonia, chronically elevated left hemidiaphragm, resulting in rightward displacement of the heart and lower mediastinal structures". This was the first time any report mentioned rightward displacement. I performed his bedside Echo (since we had no Echo service here for 3 more days) and the Echo showed his inferior LV wall is the most anterior structure in his R chest, the septum is posterior to that and the RV is posterior to that (as if the heart had swung like a pendulum into his R chest). It appeared that the great vessels have normal orientation. He does not think he has had this from , was never told he had a congenital heart defect, and said he was able to be accepted into the [facility]. Because he has an elevated left trent- diaphragm and a large gas bubble or air in the colon pushing up the L trent- diaphragm significantly into the left chest, this may have displaced the heart to the right, over time. He required transfer for coronary angiography because of the NSTEMI and this will all need to be evaluated by Cardiology. Presumably, his dextrocardia is why he had "pressure feeling in the R lower chest and RUQ" during that episode on Day 2. (5) Hypertension Blood pressure during several episodes of acute respiratory distress were as high as 190 syst. Lasix iv and Nitropaste were added and we continued his beta- ousmane and Losartan. (6) Acute kidney injury superimposed on chronic kidney disease He presented with a creatinine of 1.8, which improved on iv fluids. The IV fluids had to be stopped because of the witnessed pulmonary edema that occurred on Day 2. (7) Aspiration pneumonia His CXR and CT chest were read as having bilateral infiltrates. His sputum grew an organism, details and sensitivities were pending at the time of transfer (but were FAXed to [place] when we had the final microbiology report). He was started on empiric IV ceftriaxone and Zithromax plus a probiotic while here. Then when he had witnessed aspiration twice and went into coughing spells with air hunger, he reported that he felt almost like he did with the flash pulmonary edema at home. He underwent a bedside swallow eval by nursing and failed it. We stopped his Zithromax (he had finished its course), and added Flagyl for anaerobic coverage. Then thickened liquids were ordered. (8) COPD exacerbation He was put on nebulizers scheduled and prn, IV steroids and inhaled steroids, Mucinex for pulmonary toilet and supplemental oxygen if needed to keep sats > 88%. (9) DARWIN on CPAP He had his home CPAP device to be used here. (10) PVD (peripheral vascular disease) Hx of L CEA. He was kept on aspirin and statin. 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 It is unknown if this was congenital or developed over time. It was associated with, and may have added to, his dextrocardia. - ALLERGIES Allergies/Adverse Reactions: Allergies Allergy/AdvReac Type Severity Reaction Status Date / Time hydrocodone AdvReac faints Verified 02/22/22 04:49 oxycodone [Oxycodone] AdvReac Unknown Verified 02/22/22 04:49 - MEDICATIONS Home Medications: Ambulatory Orders Medication Instructions Recorded Confirmed Hydrochlorothiazide 25 mg PO DAILY 05/12/13 02/22/22 Pravastatin Sodium 20 mg PO QPM 05/12/13 02/22/22 Tiotropium [place] [Spiriva] 1 puffs INH DAILY 05/12/13 02/22/22 Losartan Potassium 50 mg PO DAILY 12/17/16 02/22/22 Metoprolol Tartrate 12.5 mg PO BID 12/17/16 02/22/22 Aspirin [[place]co Aspirin EC] 81 mg PO DAILY 02/22/22 02/22/22 Multivitamin with Iron 1 each PO DAILY 02/22/22 02/22/22 [Multivitamins with Iron] Psyllium Husk [Metamucil] 0.52 gm PO DAILY 02/22/22 02/22/22 - PHYSICAL EXAM AT DISCHARGE General Appearance: positive: Mild distress (Respiratory distress when speaking, has a raspy voive from alot of coughing.) Eyes Bilateral: positive: EOMI, Other (Has bilateral edema below eyes.) Neck: positive: Nml inspection, No JVD Respiratory: positive: Wheezes (scattered), Rales (at right base), Other (prolonged expiratory phase) Cardiovascular: positive: Other (His PMI is not palpable. HIS HEART SOUNDS ARE IN HIS RIGHT CHEST.) Abdomen: positive: Non-tender, Nml bowel sounds, No distention Skin: positive: Warm, Dry Extremities: positive: Non-tender, No pedal edema Neurologic/Psychiatric: positive: Oriented x3 (Non-focal) - LABS Result Diagrams: 02/25/22 05:21 02/25/22 05:21 - DIAGNOSTIC IMAGING Diagnostic Imaging Results: Final report reviewed - FOLLOW UP Follow Up: This will be determined after his hospitalization at [facility]. - TIME SPENT Time Spent in Discharge (Minutes): 100
[2022-02-25 18:42] VITALS: BP 148/68
== END 2022-02-25 19:30 | disposition short-term general hospital (02) | DRG 189 ==
LOC: ED 04:29 → MS2 15:57
PROVIDERS: ADMIT Internal Medicine; ATTEND Internal Medicine
DX: J81.0 Acute pulmonary edema (principal); J44.0 Chronic obstructive pulmonary disease with (acute) lower respiratory infection; J18.9 Pneumonia, unspecified organism; I10 Essential (primary) hypertension; G47.30 Sleep apnea, unspecified; Z20.822 Contact with and (suspected) exposure to COVID-19; J96.01 Acute respiratory failure with hypoxia; I21.4 Non-ST elevation (NSTEMI) myocardial infarction; J69.0 Pneumonitis due to inhalation of food and vomit; Q24.0 Dextrocardia; N17.9 Acute kidney failure, unspecified; J44.1 Chronic obstructive pulmonary disease with (acute) exacerbation; G47.33 Obstructive sleep apnea (adult) (pediatric); N18.9 Chronic kidney disease, unspecified; I12.9 Hypertensive chronic kidney disease with stage 1 through stage 4 chronic kidney disease, or unspecified chronic kidney disease; J98.6 Disorders of diaphragm; I73.9 Peripheral vascular disease, unspecified; H54.7 Unspecified visual loss; Z66 Do not resuscitate; Z79.899 Other long term (current) drug therapy; Z87.891 Personal history of nicotine dependence
CPT/HCPCS: 36415; 71045; 71250; 80048; 80053; 80061; 83605; 83690; 83735; 83880; 84100; 84484; 85025; 87070; 87077; 87181; 87205; 87633; 93005; 94640; 96365; 96367; 96375; 99283; 99285; A9270; J1650; J7626; 83721

== ENCOUNTER 2022-02-25 18:24 | Outpatient (CLI) | payer MEDICARE, OTHER | END 2022-02-25 18:25 | disposition short-term general hospital (02) | LOC: EMS 18:24 | PROVIDERS: ATTEND Internal Medicine | DX: I21.4 Non-ST elevation (NSTEMI) myocardial infarction (principal); J69.0 Pneumonitis due to inhalation of food and vomit; Q24.0 Dextrocardia | CPT/HCPCS: A0425; A0426 ==